=== PATIENT | male | born 1965 | race Caucasian/White ===

== ENCOUNTER → 2017-01-07 | Outpatient (CLI) | payer OTHER ==
[2017-01-07 11:41] LABS: MEAN CORPUSCULAR HEMOGLOBIN 29.8 pg (27.0-33.0); MEAN CORPUSCULAR HGB CONC 32.9 g/dl (32.0-36.5); MEAN CORPUSCULAR VOLUME 90.5 fl (80.0-96.0); RED CELL DISTRIBUTION WIDTH 12.8 % (11.5-14.5)
[2017-01-07 11:49] LABS: ALBUMIN/GLOBULIN RATIO 1.08 (1.00-1.93); ALKALINE PHOSPHATASE 96 U/L (45-117); ALT/SGPT 33 U/L (12-78); ANION GAP 9 MEQ/L (8-16); AST/SGOT 14 U/L (15-37); BILIRUBIN,DIRECT 0.1 MG/DL (0.0-0.2); BILIRUBIN,TOTAL 0.5 MG/DL (0.2-1.0); BLOOD UREA NITROGEN 14 MG/DL (7-18); CALCIUM LEVEL 9.2 MG/DL (8.5-10.1); CARBON DIOXIDE LEVEL 30 MEQ/L (21-32); CHLORIDE LEVEL 101 MEQ/L (98-107); CREATININE FOR GFR 1.16 MG/DL (0.70-1.30); GLOMERULAR FILTRATION RATE > 60.0 (>60); GLUCOSE, FASTING 148 MG/DL (70-105); PHOSPHORUS LEVEL 2.7 MG/DL (2.5-4.9); POTASSIUM SERUM 4.5 MEQ/L (3.5-5.1); SODIUM LEVEL 140 MEQ/L (136-145); TOTAL PROTEIN 7.7 GM/DL (6.4-8.2)
== END ==
LOC: M LRY 09:12
PROVIDERS: ATTEND Podiatrist Foot & Ankle Surgery
DX: B35.1 Tinea unguium (principal); Z79.899 Other long term (current) drug therapy

== ENCOUNTER → 2017-02-14 | Outpatient (REF) | payer OTHER ==
[2017-02-14 18:00] LABS: ALBUMIN 3.9 GM/DL (3.2-5.2); ALBUMIN/GLOBULIN RATIO 1.26 (1.00-1.93); ALKALINE PHOSPHATASE 85 U/L (45-117); ALT/SGPT 50 U/L (12-78); ANION GAP 8 MEQ/L (8-16); AST/SGOT 22 U/L (15-37); BILIRUBIN,TOTAL 0.4 MG/DL (0.2-1.0); BLOOD UREA NITROGEN 14 MG/DL (7-18); CALCIUM LEVEL 8.4 MG/DL (8.5-10.1); CARBON DIOXIDE LEVEL 29 MEQ/L (21-32); CHLORIDE LEVEL 101 MEQ/L (98-107); CHOLESTEROL LEVEL 159 MG/DL (<200); CREATININE FOR GFR 1.08 MG/DL (0.70-1.30); GLOMERULAR FILTRATION RATE > 60.0 (>60); GLUCOSE, FASTING 139 MG/DL (70-105); POTASSIUM SERUM 4.2 MEQ/L (3.5-5.1); SODIUM LEVEL 138 MEQ/L (136-145); T UPTAKE 32 % (33-40); THYROXINE (T4) 9.5 UG/DL (4.5-12.0); TRIGLYCERIDES LEVEL 209 MG/DL (<150)
== END ==
LOC: M SFHCLERA 09:49
PROVIDERS: ATTEND Family Medicine
DX: R25.2 Cramp and spasm (principal); E11.9 Type 2 diabetes mellitus without complications

== ENCOUNTER → 2017-05-07 | Outpatient (REF) | payer OTHER ==
[2017-05-07 12:06] LABS: ALBUMIN 3.7 GM/DL (3.2-5.2); ALBUMIN/GLOBULIN RATIO 1.16 (1.00-1.93); ALKALINE PHOSPHATASE 87 U/L (45-117); ALT/SGPT 44 U/L (12-78); ANION GAP 8 MEQ/L (8-16); AST/SGOT 18 U/L (15-37); BILIRUBIN,TOTAL 0.7 MG/DL (0.2-1.0); BLOOD UREA NITROGEN 13 MG/DL (7-18); CALCIUM LEVEL 9.3 MG/DL (8.5-10.1); CARBON DIOXIDE LEVEL 29 MEQ/L (21-32); CHLORIDE LEVEL 103 MEQ/L (98-107); CREATININE FOR GFR 0.94 MG/DL (0.70-1.30); GLOMERULAR FILTRATION RATE > 60.0 (>60); GLUCOSE, FASTING 97 MG/DL (70-105); POTASSIUM SERUM 4.1 MEQ/L (3.5-5.1); SODIUM LEVEL 140 MEQ/L (136-145); TOTAL PROTEIN 6.9 GM/DL (6.4-8.2)
== END ==
LOC: M SFHCLERA 09:07
PROVIDERS: ATTEND Physician Assistant
DX: E11.9 Type 2 diabetes mellitus without complications (principal)

== ENCOUNTER 2017-08-02 21:54 | Inpatient (IN) | payer OTHER ==
[~2017-08-02] VITALS: Ht 167.6 cm; Wt 84.0 kg
[2017-08-02] MEDS ORDERED: DULO1CAP3 PO (22:17)
[2017-08-02] MEDS ORDERED: PRAV20TA2 PO (22:17)
[2017-08-02] MEDS ORDERED: VICT18IN SC (22:17)
[2017-08-02] MEDS ORDERED: METF10004 PO (22:17)
[2017-08-02] MEDS ORDERED: CELE1CAP9 PO (22:17)
[2017-08-02] MEDS ORDERED: AZEL0.055 (22:17)
[2017-08-02] MEDS ORDERED: LOSA50TA20 (22:17)
[2017-08-02] MEDS ORDERED: VERA240C PO (22:17)
[2017-08-02] MEDS ORDERED: KETOROLAC 30 MG/ML VIAL (J1885) IV ONE (23:30)
[2017-08-02] MEDS ORDERED: NS 1,000 ML IV ONE (23:30)
[2017-08-02] MEDS ORDERED: ONDANSETRON 4MG/2ML VIAL (J2405) IV ONE (23:30)
[2017-08-03] LABS: BASO % 0.4 % (0.0-1.0); EOS # 0.1 K/mm3 (0.0-0.50); EOS % 1.1 % (0.0-3.0); LARGE UNSTAINED CELL # 0.1 K/mm3 (0.0-0.4); LARGE UNSTAINED CELL % 0.9 % (0.0-4.0); LYMPH # 1.9 K/mm3 (1.5-4.5); LYMPH % 14.5 % (24.0-44.0); MEAN CORPUSCULAR HEMOGLOBIN 29.4 pg (27.0-33.0); MEAN CORPUSCULAR HGB CONC 32.8 g/dl (32.0-36.5); MEAN CORPUSCULAR VOLUME 89.9 fl (80.0-96.0); MONO # 0.6 K/mm3 (0.0-0.8); MONO % 4.6 % (0.0-5.0); NEUTROPHILS # 9.5 K/mm3 (1.8-7.7); NEUTROPHILS % 78.6 % (36.0-66.0); PLATELET COUNT, AUTOMATED 206 k/mm3 (150-450); RED CELL DISTRIBUTION WIDTH 13.5 % (11.5-14.5)
[2017-08-03 00:19] LABS: ERYTHROCYTE SEDIMENTATION RATE 10 mm/hr (0-20)
[2017-08-03 00:21] LABS: ALBUMIN 4.1 GM/DL (3.2-5.2); ALBUMIN/GLOBULIN RATIO 1.08 (1.00-1.93); ALKALINE PHOSPHATASE 85 U/L (45-117); ALT/SGPT 30 U/L (12-78); ANION GAP 5 MEQ/L (8-16); AST/SGOT 11 U/L (15-37); BILIRUBIN,DIRECT 0.1 MG/DL (0.0-0.2); BILIRUBIN,TOTAL 0.6 MG/DL (0.2-1.0); BLOOD UREA NITROGEN 17 MG/DL (7-18); CALCIUM LEVEL 9.1 MG/DL (8.5-10.1); CARBON DIOXIDE LEVEL 32 MEQ/L (21-32); CHLORIDE LEVEL 103 MEQ/L (98-107); CREATININE FOR GFR 1.37 MG/DL (0.70-1.30); GLOMERULAR FILTRATION RATE 58.6 (>56); GLUCOSE, FASTING 135 MG/DL (70-105); POTASSIUM SERUM 3.7 MEQ/L (3.5-5.1); SODIUM LEVEL 140 MEQ/L (136-145); TOTAL PROTEIN 7.9 GM/DL (6.4-8.2)
[2017-08-03] MEDS ORDERED: NS 1,000 ML IV ONE (01:30)
--- NOTE | 2017-08-03 01:30 | REPUSA ---
CLINICAL HISTORY: Headaches. TECHNIQUE: Multiple axial brain CT scan sections were obtained from base to vertex without contrast a dministration. COMMENTS: 9.2x4.3 cm uncomplicated arachnoid cyst in the posterior fossa. The study shows normal configuration of sella turcica. There are no intra or extra-axial collections. There is no mass effect or midline shift. There is no evidence of hematoma formation. No hydrocephal us is present. No abnormal calcifications are noted. No significant abnormalities are seen either in the posterior fossa or supratentorial compartment. Changes from prior right mastoidectomy. Chronic mucosal inflammatory changes of the paranasal sinuses. Air-fluid levels in the frontal sinuses. IMPRESSION: No evidence of acute intracranial pathology. Acute frontal sinusitis. Chronic mucosal inflammatory disease in the remaining paranasal sinuses. Thank you for your kind referral of this patient.
[2017-08-03] MEDS ORDERED: MORPHINE 4 MG/ML 1ML SYRINGE IV ONE (01:45)
[2017-08-03 03:02] LABS: GLUCOSE CSF 74 MG/DL (40-75)
[2017-08-03 03:16] LABS: RBC CSF AUTO 27 /mm3 (0-0); WBC CSF AUTO 265 /mm3 (0-10)
[2017-08-03 03:21] LABS: APPEARANCE, CSF CLEAR (CLEAR); COLOR, CSF COLORLESS (COLORLESS); CSF DIFF IF INDICATED? YES (NO); CSF TUBE# CELL CNT TUBE 4
[2017-08-03 03:27] LABS: CSF DILUENT LOT # 6333
[2017-08-03] MEDS ORDERED: cefTRIAXone SOD 1 GM in D5W MINI-BAG PLUS 50 ML IV ONE (04:30)
[2017-08-03] MEDS ORDERED: FLON1SPR (04:49)
[2017-08-03] MEDS ORDERED: LOSA25TA8 PO (04:49)
[2017-08-03] MEDS ORDERED: GLUCOSE 4 GM CHEW TABLET PO PRN (05:45)
[2017-08-03] MEDS ORDERED: DEXTROSE 50% 50 ML SYRINGE IV PRN (05:45)
[2017-08-03] MEDS ORDERED: ONDANSETRON 4MG/2ML VIAL (J2405) IV PRN (05:45)
[2017-08-03] MEDS ORDERED: GLUCAGON FOR INJ 1 MG VIAL (J1610) SC PRN (05:45)
[2017-08-03] MEDS ORDERED: ACETAMINOPHEN TAB 650MG DOSE (2X325MG) PO PRN (05:45)
[2017-08-03 06:04] LABS: MAGNESIUM LEVEL 1.7 MG/DL (1.8-2.4)
[2017-08-03] MEDS: NS 1,000 ML IV SCH ×2 (06:10→15:07)
[2017-08-03] MEDS: NS IV SCH ×3 (06:10→21:26)
[2017-08-03] MEDS: ACYCLOVIR IV SCH ×3 (06:10→21:26)
--- NOTE | 2017-08-03 06:53 | HPEPDOC ---
General Date of Admission Aug 03, 2017 at 05:00 Primary Care Physician: PRASANNA HARDEN PA-C Attending Physician: KWASI MCCAULEY MD Chief Complaint The patient is a 52-year-old male admitted with a reason for visit of Meningitis. Source: Patient, Family, RN notes reviewed, Old records Exam Limitations: No limitations Timing/Duration: Week(s) Associated Symptoms: Fever, Headaches, Nausea, Dizziness History of Present Illness Mr. Rivas is a 52-year-old male who presents to [facility]'s emergency Department with neck, shoulder pain, and headache. He is accompanied by his . Past medical history significant for hypertension, diabetes mellitus type 2, obstructive sleep apnea without CPAP, depression, dyslipidemia, history of left tennis elbow, a history of serous otitis media, chronic sinusitis, history of cholesteatoma, history of viral meningitis in childhood. Patient reports that for the last few weeks he has had right shoulder and neck pain that he describes as achy at rest and sharp and stabbing with movement. Reports worsening of that pain with radiation along the back of his neck and into his head. The pain is so severe that he is unable to turn his head. He also reports feeling unsteady on his feet and feeling nauseous. Patient also reports non-rigorous chills and night sweats overnight for which he took a hot bath for 45 minutes, put on pajamas bottoms and got into bed thinking that that would help. He reports that he was unable to sleep. He initially thought that he had slept wrong and took aspirin and Excedrin without relief. He finally called his primary care provider on their after hours number, but no one returned his call. He reports that this has never happened before, however he does report viral meningitis when he was 12 years old and states that the symptoms were similar to the symptoms he is having now. He denies any autoimmune disorders, infectious disorders, or other immunocompromised disease states. Denies organ transplantation or blood transfusions. 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 Reports diarrhea without noticeable blood, dependent edema, bilateral cough pain , bilateral wrist pain, and intentional weight loss. Patient reports that he has been increasing his water intake. Besides his review of systems listed above all other review systems are negative. Emergency department evaluation included vital signs which showed tachycardia. CBC was within optimal range with a mild leukocytosis. BMP reveals acute kidney injury and hyperglycemia. Patient had a lactic acidosis of 2.6. Head CT showed acute frontal sinusitis. The Gram stain and blood culture were obtained. Lumbar puncture was performed which was consistent with a viral meningitis. Hospitalist service was consulted and patient was admitted for further medical management. Home Medications Scheduled (Celecoxib) 200 Mg Cap, 200 MG PO BID, (Reported) (Azelastine HCl) 0.15 % Spr, 2 SPRAYS NA DAILY, (Reported) (Flonase Allergy Relief) 50 Mcg/Act Spr, 2 SPRAYS NA QPM, (Reported) Cefdinir (Cefdinir) 300 Mg Cap, 300 MG PO BID Duloxetine Hcl (Duloxetine HCl) 60 Mg Cap, 60 MG PO DAILY, (Reported) Liraglutide (Victoza) 18 Mg/3 Ml Inj, 0.6 UNITS SC QPM, (Reported) Losartan Potassium (Losartan Potassium) 25 Mg Tab, 25 MG PO DAILY, (Reported) Metformin Hydrochloride (Metformin HCl) 1,000 Mg Tab, 1,000 MG PO BID, (Reported ) Pravastatin Sodium (Pravastatin Sodium) 20 Mg Tab, 20 MG PO QHS, (Reported) Valacyclovir HCl (Valacyclovir HCl) 500 Mg Tab, 1,000 MG PO BID Verapamil HCl (Verapamil HCl ER) 240 Mg Cap, 240 MG PO BID, (Reported) Allergies Coded Allergies: No Known Allergies (Verified , 06/17/12) Past Medical History Medical History 1. Hypertension 2. Diabetes mellitus type 2 3. Chronic sinusitis 4. Depression 5. Dyslipidemia 6. Obstructive sleep apnea without CPAP 7. History of left tennis elbow line 8. History of serous otitis media 9. History of cholesteatoma 10. History of viral meningitis in childhood Surgical History 1. Nasal surgeries 2. 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 [employer] 1 adult son, 26 No grandchildren Denies tobacco use Rarely consumes alcohol Denies illicit drug use Admits to travel Denies environmental exposures Review of Symptoms Constitutional: Reports: Chills, Fever, Night Sweats, Weight Loss (intentional) , Denies: Weakness Eyes: Reports: Vision change (blurry vision), Denies: Pain, Conjunctivae inflammation, Eyelid inflammation, Redness ENT: Reports: Head Aches (achy at rest, sharp and stabbing with movement), Sinus Congestion, Denies: Ear Pain, Dysphagia, Post Nasal Drip, Sore Throat, Epistaxis Skin: Denies: Rash, Lesions Pulmonary: Denies: Dyspnea, Cough, Pleuritic Chest Pain Cardiovascular: Reports: Edema (bilateral dependent edema), Denies: Chest Pain, Palpitations, Orthopnea, Paroxysmal Noc. Dyspnea, Lt Headedness Gastrointestinal: Reports: Nausea, Diarrhea, Denies: Vomiting, Abdominal Pain, Constipation, Melena, Hematochezia Genitourinary: Denies: Dysuria, Frequency, Incontinence, Hematuria, Retention Hematologic: Denies: Bruising, Bleeding Excessively Endocrine: Denies: Polydipsia, Polyphagia, Polyuria Musculoskeletal: Reports: Neck Pain, Shoulder Pain (right), Hand Pain ( bilateral wrist), Muscle Pain Neurological: Denies: Weakness, Numbness Physical Examination General Exam: Positive: Alert, Cooperative, No Acute Distress Eye Exam: Positive: PERRLA, Conjunctiva & lids normal, EOMI, Negative: Sclera icteric, Ptosis ENT Exam: Positive: Atraumatic, Mucous membr. moist/pink, Pharynx Normal, Tongue Midline, Nares Patent, Negative: Pharyngeal Edema Neck Exam: Positive: Supple, +2 carotid pulse wo bruit, Other (pain with passive flexion and knee and hip flexion), Negative: JVD, thyromegaly, Lymphadenopathy Chest Exam: Positive: Clear to auscultation, Normal air movement, Negative: Rales, Rhonchi, Wheezing, Diminished Heart Exam: Positive: Rate Normal, Tachycardic, Regular Rhythm, Normal S1, Normal S2, Negative: Gallops, Murmurs, Rubs Telemetry: Positive: Tachycardia Abdomen Exam: Positive: Normal bowel sounds, Soft, Negative: Tenderness, Hepatospenomegaly, Mass, Hernia Extremity Exam: Positive: Normal pulses (tachycardic), Negative: Clubbing, Cyanosis, Edema, Tenderness Skin Exam: Negative: Rash, Breakdown Neuro Exam: Positive: Normal Speech, Strength at 5/5 X4 ext, Cranial Nerves 3- 12 NL Other physical findings Head CT IMPRESSION: No evidence of acute intracranial pathology. Acute frontal sinusitis. Chronic mucosal inflammatory disease in the remaining paranasal sinuses. Vital Signs Vital Signs Date Time Temp Pulse Resp B/P (MAP) Pulse Ox O2 Delivery O2 Flow Rate FiO2 08/03/17 05:32 99.7 106 16 92 Room Air 130/82 (98) Height (in): 66 Weight (kg): 84.09 BMI (kg): 29.9 Laboratory Data Labs 24H Laboratory Tests 2 08/02/17 23:38: White Blood Count 12.0H, Red Blood Count 4.86, Hemoglobin 14.3, Hematocrit 43.7 , Mean Corpuscular Volume 89.9, Mean Corpuscular Hemoglobin 29.4, Mean Corpuscular Hemoglobin Concent 32.8, Red Cell Distribution Width 13.5, Platelet Count 206, Neutrophils (%) (Auto) 78.6H, Lymphocytes (%) (Auto) 14.5L, Monocytes (%) (Auto) 4.6, Eosinophils (%) (Auto) 1.1, Basophils (%) (Auto) 0.4, Neutrophils # (Auto) 9.5H, Lymphocytes # (Auto) 1.9, Monocytes # (Auto) 0.6, Eosinophils # (Auto) 0.1, Basophils # (Auto) 0.0, Large Unclassified Cells % 0.9 , Large Unclassified Cells # 0.1, Erythrocyte Sedimentation Rate 10, Anion Gap 5L, Glomerular Filtration Rate 58.6, Calcium Level 9.1, Magnesium Level 1.7L, Aspartate Amino Transf (AST/SGOT) 11L, Alanine Aminotransferase (ALT/SGPT) 30, Alkaline Phosphatase 85, Total Bilirubin 0.6, Direct Bilirubin 0.1, C-Reactive Protein, Quantitative < 0.30, Total Protein 7.9, Albumin 4.1, Albumin/Globulin Ratio 1.08 08/02/17 23:39: Lactic Acid Level 2.6*H 08/03/17 02:23: 08/03/17 02:27: CSF Appearance CLEAR, CSF Color COLORLESS, CSF WBC (Auto) 265H, CSF RBC (Auto) 27H, CSF Glucose (Tube 1) TUBE 1, CSF Total Protein (Tube 1) TUBE 2, CSF Cell Count Tube # TUBE 4, CSF Neutrophils % 10.0H, CSF Lymphocytes % 60.0H, CSF Monocytes % 29.0H, CSF Eosinophils % 0.0, CSF Glucose 74, CSF Total Protein 144.4H CBC/BMP Laboratory Tests 08/02/17 23:38 Red Blood Count 4.86, Mean Corpuscular Volume 89.9, Mean Corpuscular Hemoglobin 29.4, Mean Corpuscular Hemoglobin Concent 32.8, Red Cell Distribution Width 13.5 , Neutrophils (%) (Auto) 78.6 H, Lymphocytes (%) (Auto) 14.5 L, Monocytes (%) ( Auto) 4.6, Eosinophils (%) (Auto) 1.1, Basophils (%) (Auto) 0.4, Neutrophils # ( Auto) 9.5 H, Lymphocytes # (Auto) 1.9, Monocytes # (Auto) 0.6, Eosinophils # ( Auto) 0.1, Basophils # (Auto) 0.0 Microbiology Microbiology 08/03/17 Blood Culture, Received Pending 08/02/17 Blood Culture, Received Pending 08/03/17 Gram Stain - Preliminary, Resulted 08/03/17 CSF Culture, Resulted Pending 08/03/17 Viral Culture, Received Pending Assessment/Plan This is a 52-year-old male with a past medical history significant for hypertension, diabetes mellitus type 2, obstructive sleep apnea without CPAP , depression, dyslipidemia, history of left tennis elbow, a history of serous otitis media, chronic sinusitis, history of cholesteatoma who presents with viral meningitis. Plan / VTE VTE Prophylaxis Ordered?: Yes (TEDs, sequential, knee-high compression, heparin 5000 units subcutaneous every 8 hours) Plan Plan Viral meningitis Lumbar puncture CSF fluid results indicates more of a viral picture. Mild leukocytosis. Patient did receive a dose of Rocephin in the emergency department. Started patient on acyclovir. Obtaining viral culture. Initial Gram stain did not reveal anything significant. Intravenous fluid resuscitation with normal saline at 100 mLs per hour. Tylenol as needed for pain. Zofran for nausea. Lactic acidosis Likely secondary to medical picture. Four hour reflexive lactic acid pending. Acute kidney injury Likely secondary to underlying clinical picture. Intravenous fluid resuscitation with normal saline at 100 mLs per hour. Hypertension Continue patient on current home medication regimen of losartan and verapamil with hold parameters of systolic blood pressure < 110 and/or heart rate < 60. Dyslipidemia Continue patient on home medication pravastatin. Depression Continue patient home medication of Cymbalta. Diabetes mellitus, type II Hold patient's metformin. Continue patient on sliding scale insulin, fingersticks before meals and at bedtime, and hypoglycemic protocol. Chronic sinusitis Continue patient on current home medication of fluticasone. Disposition Admit: Medical surgical unit Anticipated hospitalization: 2 nights Attending: Dr. Moreno IVF: Initiate Diet: Continue Current Activity: Encourage Ambulation Medications: Change to IV Diagnostics: Check Labs, Repeat Labs in AM, Obtain Cultures Anticipated Discharge: Home GME ATTESTATION GME ATTESTATION My preceptor for this patient encounter was physically present in the building during the encounter and was fully available. As needed, all aspects of the patient interview, examination, medical decision making process, and medical care plan development were reviewed and approved by the preceptor. Preceptor is aware and concurs with the plan as stated in the body of this note and will attest to such by his/her cosignature. ATTENDING NOTE I, Kwasi Mccauley, have both independently examined this patient as well as reviewed the documentation. I have discussed in detail with the resident the findings and plan of treatment as documented in the residents documentation. I will continue to follow the patient and offer further guidance to the patients care as necessary during this hospital stay. MEL KEARNS Aug 03, 2017 06:53 KWASI MCCAULEY MD Aug 19, 2017 15:51
[2017-08-03 08:35] VITALS: BP 176/97
[2017-08-03] MEDS ORDERED: LOSARTAN 25 MG TAB PO SCH (09:00)
[2017-08-03] MEDS: HumaLOG INSULIN (NovoLOG) PER UNIT SC SCH ×4 (10:11→21:00)
[2017-08-03] MEDS: DULoxetine 30 MG CAP (CYMBALTA) PO SCH (10:11)
[2017-08-03] MEDS: VERAPAMIL 120 MG SR TAB PO SCH ×2 (10:12→21:26)
[2017-08-03] MEDS: HEPARIN SOD (PORCINE) 5000 UNITS/ML VIAL SC SCH ×3 (10:13→21:27)
[2017-08-03] MEDS: oxyCODONE 5MG TAB PO PRN ×2 (11:48→21:26)
[2017-08-03] MEDS: ACETAMINOPHEN 500 MG TAB PO PRN ×2 (15:05→23:09)
[2017-08-03 16:00] VITALS: BP 117/59
[2017-08-03] MEDS ORDERED: ALBUTEROL SULFATE 2.5 MG/0.5 ML INH NEB SOLN NEB PRN (17:30)
[2017-08-03] MEDS ORDERED: FUROSEMIDE 20 MG/2 ML VIAL (J1940) IV ONE (18:00)
[2017-08-03] MEDS ORDERED: ALBUTEROL SULFATE 2.5 MG/0.5 ML INH NEB SOLN NEB ONE (18:00)
[2017-08-03] MEDS: PRAVASTATIN 20 MG TAB PO SCH (21:25)
[2017-08-03] MEDS: FLUTICASONE PROP 0.05% NASAL SPRAY 16 GM (FLONASE) SCH (21:27)
[2017-08-03 23:00] VITALS: BP 149/68
--- NOTE | 2017-08-03 23:44 | PHACANCOPD ---
PHARMACY VANCOMYCIN DOSING Pt Demographics Demographics Patient Age:52 , Weight:90.100 , Gender: male Adjusted Body Weight Date: 08/03/17, Adjusted Body Weight: [74] Kg Events Past 24 Hours Events Past 24 Hours: NO: Dialysis, Diuretic Therapy, Change in CrCl, Fever, Elevation in WBC, Pending Diagnostics, Pending Procedures, Other Vancomycin Vancomycin Target Ranges: 15-20 mcg/ml Vancomycin Load Y/N: Yes Load Dose Date Time Vancomycin Load Dose: 2000MG Date: 08-04 Time: 0200 Vancomycin Dose Date: 08/03/17. Current Vancomycin Dose: [1G Q8H] Intermittent Dosing?: No Labs Labs Item Value Date Time White Blood Count 12.0 K/mm3 H 08/02/17 2338 Creatinine 1.37 MG/DL H 08/02/178 Blood Urea Nitrogen 17 MG/DL 08/02/17 2338 Vital Signs Label Value Date Time Patient Temperature 99.4 degrees F 08/03/17 1600 Temperature Source Temporal 08/03/17 1600 Micro Microbiology 08/03/17 Blood Culture, Received Pending 08/02/17 Blood Culture, Received Pending 08/03/17 Gram Stain - Final, Resulted 08/03/17 CSF Culture, Resulted Pending 08/03/17 Viral Culture, Received Pending Creatinine Clearance Date:08/03/17. Creatinine Clearance: [58]. Pending Labs Trough 09-03 @1700 Assessment and Plan Maintaining Current Dose?: Yes Reason for dose change: No Dose Change Pharmacist Note Pharmacist Note Date: 08/03/17. Pharmacist note:doses at 1000mg q8h with a trough ordered for 09- 03 @1700. Will continue to monitor and make adjustments as needed. LEVI CORTEZ PHARMACY Aug 03, 2017 23:44
[2017-08-03] MEDS: cefTRIAXone SOD 2 GM in D5W MINI-BAG PLUS 50 ML IV SCH (23:49)
[2017-08-04] MEDS ORDERED: SODIUM CHLORIDE 0.9% 1000 ML IV ONE
[2017-08-04] MEDS ORDERED: VANCOMYCIN HCL 1,000 MG, VIAL MATE ADAPTER 1 EACH in D5W 250 ML IV ONE (01:00)
[2017-08-04] MEDS: VANCOMYCIN HCL 1,000 MG, VIAL MATE ADAPTER 1 EACH in D5W 250 ML IV SCH ×3 (02:27→18:05)
[2017-08-04] MEDS: AMPICILLIN SOD 2 GM in D5W MINI-BAG PLUS 100 ML IV SCH ×5 (05:35→21:07)
[2017-08-04] MEDS: NS IV SCH ×3 (06:17→22:04)
[2017-08-04] MEDS: HEPARIN SOD (PORCINE) 5000 UNITS/ML VIAL SC SCH ×3 (06:17→22:04)
[2017-08-04] MEDS: ACYCLOVIR IV SCH ×3 (06:17→22:04)
[2017-08-04] MEDS: oxyCODONE 5MG TAB PO PRN (06:18)
[2017-08-04 07:18] LABS: BASO % 0.2 % (0.0-1.0); EOS # 0.1 K/mm3 (0.0-0.50); EOS % 0.5 % (0.0-3.0); LARGE UNSTAINED CELL # 0.1 K/mm3 (0.0-0.4); LARGE UNSTAINED CELL % 0.8 % (0.0-4.0); LYMPH # 1.4 K/mm3 (1.5-4.5); LYMPH % 10.9 % (24.0-44.0); MEAN CORPUSCULAR HGB CONC 33.1 g/dl (32.0-36.5); MEAN CORPUSCULAR VOLUME 90.8 fl (80.0-96.0); MONO # 0.7 K/mm3 (0.0-0.8); MONO % 5.9 % (0.0-5.0); NEUTROPHILS # 9.4 K/mm3 (1.8-7.7); NEUTROPHILS % 81.7 % (36.0-66.0); PLATELET COUNT, AUTOMATED 171 k/mm3 (150-450); RED CELL DISTRIBUTION WIDTH 13.5 % (11.5-14.5); WHITE BLOOD COUNT 11.5 K/mm3 (4.0-10.0)
[2017-08-04 07:35] LABS: ANION GAP 10 MEQ/L (8-16); BLOOD UREA NITROGEN 10 MG/DL (7-18); CALCIUM LEVEL 7.7 MG/DL (8.5-10.1); CARBON DIOXIDE LEVEL 28 MEQ/L (21-32); CHLORIDE LEVEL 101 MEQ/L (98-107); CREATININE FOR GFR 1.05 MG/DL (0.70-1.30); GLOMERULAR FILTRATION RATE > 60.0 (>56); GLUCOSE, FASTING 167 MG/DL (70-105); POTASSIUM SERUM 3.7 MEQ/L (3.5-5.1); SODIUM LEVEL 139 MEQ/L (136-145)
[2017-08-04 07:43] LABS: MAGNESIUM LEVEL 1.5 MG/DL (1.8-2.4)
--- NOTE | 2017-08-04 08:26 | REP ---
Clinical: Hypoxia. Comparison: 06/10/2012. Findings: Evaluation is limited by portable technique, underpenetration, and poor inspiratory effort - all of which accentuate the pulmonary vasculature and interstitium. Mild interstitial edema cannot be excluded along with trace right basilar atelectasis. The cardiac silhouette is within normal limits. No pneumothorax. Skeletal structures are intact. Impression: Limited portable chest x-ray. Cannot exclude interstitial edema or trace right basilar atelectasis. Signed by Korey Shay MD 08/04/2017 08:18 A
[2017-08-04] MEDS: HumaLOG INSULIN (NovoLOG) PER UNIT SC SCH ×4 (08:31→21:00)
[2017-08-04] MEDS: VERAPAMIL 120 MG SR TAB PO SCH ×2 (08:33→21:07)
[2017-08-04] MEDS: DULoxetine 30 MG CAP (CYMBALTA) PO SCH (08:34)
[2017-08-04] MEDS: ACETAMINOPHEN 500 MG TAB PO PRN ×2 (08:34→18:54)
[2017-08-04 09:11] LABS: ABG BASE EXCESS 1.9 (-2.0-2.0); ABG HCO3 26.6 MEQ/L (22.0-26.0); ABG PARTIAL PRESSURE CO2 42.1 mmHg (35.0-45.0); ABG PARTIAL PRESSURE O2 82.4 mmHg (75.0-100.0); ABG STANDARD HCO3 26.1 MEQ/L (22.0-26.0); ABG TOTAL CO2 27.9 MEQ/L (22.0-29.0); ABG pH (ARTERIAL) 7.419 UNITS (7.350-7.450)
[2017-08-04] MEDS: MAG SULF 1GM/100ML (MAG RUN) 1 GM in APPROPRIATE DILUENT 1 EA IV SCH ×2 (09:38→10:39)
--- NOTE | 2017-08-04 10:01 | IPNPDOC ---
Subjective Date Seen The patient was seen on 08/04/17. Subjective Chief Complaint/HPI The patient is a 52-year-old male admitted with a reason for visit of Meningitis. Events since last encounter Last night pateint was feeling very sick , headache , body soreness, was hypoxic to 84% in room air since the afternoon was started on nasal canula oxygen lso had some crackles in the base so was given lasix with good diuresis this did not help with the hypoxia. hea was not complaining of any sob and was nt tachypnic was was overall felt sicker at night so was started on vanco and ampicillin for broader coverage for bacterial meningitis. also his lactate was elevated overnight so was given 1 l fluid . this improved the lactate. this morning was feeling a little better. However later in the morning nurse paged me as he was falling asleep when he was talking to him and also with 4 liter oxygen his spo2 was only 84%. He was nt complaining of any sob , did not have any tachypnea. Had good bilateral airentry. CXR did not show acute acute changes, blood gas did not show any co2 retention. He was put on ventimask with improvement of oxygenation. Patient did received an oxycodone in the am . It looks like patient has sleep disorder and sleep apnea which worsened with oxycodone. Pateint did later tell me that he had a sleep study before and was advised CPAP however did not want it. Objective Physical Examination General Exam: Positive: Alert, Cooperative, No Acute Distress Eye Exam: Positive: PERRLA, Conjunctiva & lids normal, EOMI, Negative: Sclera icteric, Ptosis ENT Exam: Positive: Atraumatic, Mucous membr. moist/pink, Pharynx Normal, Tongue Midline, Nares Patent, Negative: Pharyngeal Edema Neck Exam: Positive: Supple, +2 carotid pulse wo bruit, Other (pain with passive flexion and knee and hip flexion), Negative: JVD, thyromegaly, Lymphadenopathy Chest Exam: Positive: Clear to auscultation, Normal air movement, Negative: Rales, Rhonchi, Wheezing, Diminished Heart Exam: Positive: Rate Normal, Tachycardic, Regular Rhythm, Normal S1, Normal S2, Negative: Gallops, Murmurs, Rubs Telemetry: Positive: Tachycardia Abdomen Exam: Positive: Normal bowel sounds, Soft, Negative: Tenderness, Hepatospenomegaly, Mass, Hernia Extremity Exam: Positive: Normal pulses (tachycardic), Negative: Clubbing, Cyanosis, Edema, Tenderness Skin Exam: Negative: Rash, Breakdown Neuro Exam: Positive: Normal Speech, Strength at 5/5 X4 ext, Cranial Nerves 3- 12 NL Assessment /Plan Problems (1) Hypoxia Status: Acute Problem Text: mostly when patient falling asleep. due to SAV worsened with oxycodone will dc oxycodone put the patient on oxygen by mask to maintain sats of 90% (2) Meningitis Status: Acute Problem Text: looks viral or early bacterial or aseptic. lymphocytic will continue with acyclovir and ceftriaxone , vanco and ampicillin after csf culture will deescalate antibiotics. (3) KARLEE (acute kidney injury) Status: Resolved (4) Diabetes Status: Chronic (5) Hypertension Status: Chronic (6) Hyperlipidemia Status: Chronic (7) SAV (obstructive sleep apnea) Status: Chronic Problem Text: needs oxygen. (8) Anxiety and depression Status: Chronic (9) Chronic back pain Status: Chronic (10) History of kidney stones Status: Chronic (11) Acute sinusitis Status: Acute Problem Text: on multiple antibiotics. Plan/VTE VTE Prophylaxis Ordered?: Yes (TEDs, sequential, knee-high compression, heparin 5000 units subcutaneous every 8 hours) Plan IVF: Initiate Diet: Continue Current Activity: Encourage Ambulation Medications: Change to IV Diagnostics: Check Labs, Repeat Labs in AM, Obtain Cultures Anticipated Discharge: Home VS, I&O, 24H, [facility] Vital Signs/I&O Vital Signs Date Time Temp Pulse Resp B/P (MAP) Pulse Ox O2 Delivery O2 Flow Rate FiO2 08/04/17 08:50 92 Venturi Mask 08/04/17 08:45 100.9 77 20 4.0 08/04/17 08:33 115/63 I&O- Last 24 Hours up to 6 AM 08/04/17 06:00 Intake Total 2236.8 ml Output Total 2900 ml Balance -663.2 ml Laboratory Data 24H LABS Laboratory Tests 2 08/03/17 22:15: Lactic Acid Followup at 4 Hours 4.2*H 08/04/17 02:15: Lactic Acid Level 2.0 08/04/17 06:51: White Blood Count 11.5H, Red Blood Count 4.41, Hemoglobin 13.2L, Hematocrit 40.0L, Mean Corpuscular Volume 90.8, Mean Corpuscular Hemoglobin 30.0, Mean Corpuscular Hemoglobin Concent 33.1, Red Cell Distribution Width 13.5, Platelet Count 171, Neutrophils (%) (Auto) 81.7H, Lymphocytes (%) (Auto) 10.9L, Monocytes (%) (Auto) 5.9H, Eosinophils (%) (Auto) 0.5, Basophils (%) (Auto) 0.2 , Neutrophils # (Auto) 9.4H, Lymphocytes # (Auto) 1.4L, Monocytes # (Auto) 0.7, Eosinophils # (Auto) 0.1, Basophils # (Auto) 0.0, Large Unclassified Cells % 0.8 , Large Unclassified Cells # 0.1, Anion Gap 10, Glomerular Filtration Rate > 60.0, Blood Urea Nitrogen 10, Creatinine 1.05, Sodium Level 139, Potassium Level 3.7, Chloride Level 101, Carbon Dioxide Level 28, Calcium Level 7.7#L, Magnesium Level 1.5L 08/04/17 09:00: Blood Gas Bicarbonate Standard 26.1H, Arterial Blood pH 7.419, Arterial Blood Partial Pressure CO2 42.1, Arterial Blood Partial Pressure O2 82.4, Arterial Blood Total CO2 27.9, Arterial Blood HCO3 26.6H, Arterial Blood Base Excess 1.9 , Arterial Blood Oxygen Saturation 96.4 CBC/BMP Laboratory Tests 08/04/17 06:51 Red Blood Count 4.41, Mean Corpuscular Volume 90.8, Mean Corpuscular Hemoglobin 30.0, Mean Corpuscular Hemoglobin Concent 33.1, Red Cell Distribution Width 13.5 , Neutrophils (%) (Auto) 81.7 H, Lymphocytes (%) (Auto) 10.9 L, Monocytes (%) ( Auto) 5.9 H, Eosinophils (%) (Auto) 0.5, Basophils (%) (Auto) 0.2, Neutrophils # (Auto) 9.4 H, Lymphocytes # (Auto) 1.4 L, Monocytes # (Auto) 0.7, Eosinophils # (Auto) 0.1, Basophils # (Auto) 0.0, Calcium Level 7.7 #L Microbiology Microbiology 08/03/17 Blood Culture - Preliminary, Resulted No growth after 24 hours . All specim... 08/02/17 Blood Culture - Preliminary, Resulted No growth after 24 hours . All specim... 08/03/17 Gram Stain - Final, Resulted 08/03/17 CSF Culture, Resulted Pending 08/03/17 Viral Culture, Received Pending LANIE BEACH MD Aug 04, 2017 10:01
[2017-08-04] MEDS: cefTRIAXone SOD 2 GM in D5W MINI-BAG PLUS 50 ML IV SCH (12:43)
[2017-08-04 16:00] VITALS: BP 130/70
[2017-08-04 20:00] VITALS: BP 159/84
[2017-08-04 21:00] VITALS: BP 143/84
[2017-08-04] MEDS: PRAVASTATIN 20 MG TAB PO SCH (21:06)
[2017-08-04] MEDS: FLUTICASONE PROP 0.05% NASAL SPRAY 16 GM (FLONASE) SCH (21:08)
[2017-08-05] VITALS: BP 136/75
[2017-08-05] MEDS: cefTRIAXone SOD 2 GM in D5W MINI-BAG PLUS 50 ML IV SCH (00:02)
[2017-08-05] MEDS: KETOROLAC 30 MG/ML VIAL (J1885) IV PRN ×3 (00:02→15:24)
[2017-08-05] MEDS: AMPICILLIN SOD 2 GM in D5W MINI-BAG PLUS 100 ML IV SCH ×3 (01:12→08:46)
[2017-08-05] MEDS: VANCOMYCIN HCL 1,000 MG, VIAL MATE ADAPTER 1 EACH in D5W 250 ML IV SCH ×2 (02:06→09:33)
[2017-08-05 04:45] VITALS: BP 122/63
[2017-08-05] MEDS: HEPARIN SOD (PORCINE) 5000 UNITS/ML VIAL SC SCH ×3 (06:07→20:29)
[2017-08-05] MEDS: NS IV SCH ×3 (06:08→20:29)
[2017-08-05] MEDS: ACYCLOVIR IV SCH ×3 (06:08→20:29)
[2017-08-05 07:26] LABS: BASO % 0.2 % (0.0-1.0); EOS # 0.1 K/mm3 (0.0-0.50); EOS % 1.2 % (0.0-3.0); LARGE UNSTAINED CELL # 0.1 K/mm3 (0.0-0.4); LARGE UNSTAINED CELL % 1.1 % (0.0-4.0); LYMPH # 1.4 K/mm3 (1.5-4.5); LYMPH % 10.3 % (24.0-44.0); MEAN CORPUSCULAR HGB CONC 33.9 g/dl (32.0-36.5); MEAN CORPUSCULAR VOLUME 88.3 fl (80.0-96.0); MONO # 0.7 K/mm3 (0.0-0.8); MONO % 5.6 % (0.0-5.0); NEUTROPHILS # 9.6 K/mm3 (1.8-7.7); NEUTROPHILS % 81.6 % (36.0-66.0); PLATELET COUNT, AUTOMATED 158 k/mm3 (150-450); RED CELL DISTRIBUTION WIDTH 13.5 % (11.5-14.5); WHITE BLOOD COUNT 11.8 K/mm3 (4.0-10.0)
[2017-08-05] MEDS: HumaLOG INSULIN (NovoLOG) PER UNIT SC SCH ×4 (07:30→20:36)
[2017-08-05 07:39] LABS: ANION GAP 6 MEQ/L (8-16); BLOOD UREA NITROGEN 9 MG/DL (7-18); CALCIUM LEVEL 7.8 MG/DL (8.5-10.1); CARBON DIOXIDE LEVEL 32 MEQ/L (21-32); CHLORIDE LEVEL 99 MEQ/L (98-107); CREATININE FOR GFR 0.84 MG/DL (0.70-1.30); GLOMERULAR FILTRATION RATE > 60.0 (>56); GLUCOSE, FASTING 159 MG/DL (70-105); POTASSIUM SERUM 3.4 MEQ/L (3.5-5.1); SODIUM LEVEL 137 MEQ/L (136-145)
[2017-08-05 08:00] VITALS: BP 130/71
[2017-08-05] MEDS ORDERED: POTASSIUM CHLORIDE 10 MEQ SR TABLET PO ONE (08:00)
[2017-08-05 08:07] LABS: FERRITIN 98 NG/ML (26-388); PERCENT SATURATION 6.3 % (19.7-50.0); TOTAL IRON BINDING CAPACITY 350 UG/DL (250-450)
[2017-08-05 08:10] LABS: RETIC HEMOGLOBIN CONTENT CHr 31.7 PG (24-36); RETICULOCYTE ABSOLUTE ADVIA212 62 x10(9)/L (17-77)
--- NOTE | 2017-08-05 08:17 | IPNPDOC ---
Date Seen The patient was seen on 08/05/17. Progress Note SUBJECTIVE: Patient is a 52-year-old male with suspected meningitis. Patient reports that he is having some increased work of breathing. Has SAV, but states he will not wear his CPAP. We have him on 50% venturi-mask with oxygen saturations at bedside at 89%. Patient's left arm is erythematous and warm from IV infiltration. Recommended that patient elevate arm and place a warm compress over the area. Patient reports that he "feels better", but complains of a frontal headache and myalgias. Reports that neck pain has subsided. Currently evaluating other causes for suspected meningitis, such as fungal etiology. OBJECTIVE PHYSICAL EXAMINATION: VITAL SIGNS: Please see below. GENERAL: Pleasant male, sitting up in bed, venturi-mask in place, alert and conversant HEENT: Atraumatic, normocephalic, PERRL, EOMI, oral mucosa appears somewhat dry , nares are patent, nasal septum is midline CARDIOVASCULAR: Regular rate and rhythm, normal S1 and S2, no murmur, rub, click RESPIRATORY: Crackles appreciated in the right middle and lower lobes; clear to auscultation on the left ABDOMINAL: Soft, non-tender, non-distended, bowel sounds appreciated EXTREMITIES: Left forearm erythematous and warm, peripheral pulses appreciated, equal, symmetrical, +2/4 NEUROLOGICAL: CN II-XII grossly intact PSYCHOLOGICAL: Alert and conversant LABORATORY DATA: Please see below. MICROBIOLOGY: Please see below DVT prophylaxis ordered?: Heparin 5,000 units SC every 8 hours ASSESSMENT AND PLAN: This is a 52-year-old male with suspected meningitis. PROBLEMS: 1. Meningitis: Continue with ampicillin, ceftriaxone, acyclovir, and vancomycin. Investigating other etiologies, such as fungal by obtaining fungal smear. Obtaining viral PCR on CSF. Mild leukocytosis remains. Tylenol for pain. Zofran for nausea. 2. Myalgias: Initiate NSAIDs. Discontinued narcotic as patient desaturated. History of SAV. 3. Hypoxia: Patient oxygen saturation desaturated to 89% bedside. Continue venturi-mask at 50% FiO2. Patient states he will not wear CPAP. Encouraged IS. Albuterol nebulizer as needed. 4. Anemia: Likely dilutional. Obtaining iron studies, reticulocyte count, and peripheral smear. 5. Abnormal electrolytes: Replenishing calcium and potassium. 6. Hypertension: Continue patient on current home medication regimen of losartan and verapamil with hold parameters of systolic blood pressure < 110 and /or heart rate < 60. 7. Dyslipidemia: Continue patient on home medication pravastatin. 8. Depression: Continue patient home medication of Cymbalta. 9. Diabetes mellitus, type II: Hold patient's metformin. Continue patient on sliding scale insulin, fingersticks before meals and at bedtime, and hypoglycemic protocol. 10. Acute sinusitis: Continue patient on current home medication of fluticasone. Patient on multiple antibiotics. 11. Headache: Continue patient on Tylenol and NSAIDs. DISPOSITION: Remains admitted for the time-being. Continue antibiotics. Investigate other etiologies for suspected meningitis. VS, I&O, 24H, Fishbone Vital Signs/I&O Vital Signs Date Time Temp Pulse Resp B/P (MAP) Pulse Ox O2 Delivery O2 Flow Rate FiO2 08/05/17 04:45 97.8 74 18 122/63 (82) 94 Venturi Mask 50 08/04/17 16:00 4.0 I&O- Last 24 Hours up to 6 AM 08/05/17 05:59 Intake Total 2850 ml Output Total 2330 ml Balance 520 ml Laboratory Data 24H LABS Laboratory Tests 2 08/04/17 09:00: Blood Gas Bicarbonate Standard 26.1H, Arterial Blood pH 7.419, Arterial Blood Partial Pressure CO2 42.1, Arterial Blood Partial Pressure O2 82.4, Arterial Blood Total CO2 27.9, Arterial Blood HCO3 26.6H, Arterial Blood Base Excess 1.9 , Arterial Blood Oxygen Saturation 96.4 08/04/17 16:56: Vancomycin Level Trough 9.1L 08/05/17 07:07: White Blood Count 11.8H, Red Blood Count 3.98L, Hemoglobin 11.9L, Hematocrit 35.1L, Mean Corpuscular Volume 88.3, Mean Corpuscular Hemoglobin 30.0, Mean Corpuscular Hemoglobin Concent 33.9, Red Cell Distribution Width 13.5, Platelet Count 158, Neutrophils (%) (Auto) 81.6H, Lymphocytes (%) (Auto) 10.3L, Monocytes (%) (Auto) 5.6H, Eosinophils (%) (Auto) 1.2, Basophils (%) (Auto) 0.2 , Neutrophils # (Auto) 9.6H, Lymphocytes # (Auto) 1.4L, Monocytes # (Auto) 0.7, Eosinophils # (Auto) 0.1, Basophils # (Auto) 0.0, Large Unclassified Cells % 1.1 , Large Unclassified Cells # 0.1, Anion Gap 6L, Glomerular Filtration Rate > 60.0, Blood Urea Nitrogen 9, Creatinine 0.84, Sodium Level 137, Potassium Level 3.4L, Chloride Level 99, Carbon Dioxide Level 32, Calcium Level 7.8L CBC/BMP Laboratory Tests 08/05/17 07:07 Red Blood Count 3.98 L, Mean Corpuscular Volume 88.3, Mean Corpuscular Hemoglobin 30.0, Mean Corpuscular Hemoglobin Concent 33.9, Red Cell Distribution Width 13.5, Neutrophils (%) (Auto) 81.6 H, Lymphocytes (%) (Auto) 10.3 L, Monocytes (%) (Auto) 5.6 H, Eosinophils (%) (Auto) 1.2, Basophils (%) ( Auto) 0.2, Neutrophils # (Auto) 9.6 H, Lymphocytes # (Auto) 1.4 L, Monocytes # ( Auto) 0.7, Eosinophils # (Auto) 0.1, Basophils # (Auto) 0.0, Calcium Level 7.8 L Microbiology Microbiology 08/03/17 Blood Culture - Preliminary, Resulted No Growth after 48 hours. All Specime... 08/02/17 Blood Culture - Preliminary, Resulted No Growth after 48 hours. All Specime... 08/03/17 Gram Stain - Final, Complete 08/03/17 CSF Culture - Final, Complete 08/03/17 Fungal Smear, Received Pending 08/03/17 Fungal Culture, Received Pending 08/03/17 , Received Pending 08/03/17 Viral Culture, Received Pending MEL KEARNS Aug 05, 2017 08:17
[2017-08-05 08:43] LABS: REASON FOR REVIEW COMPREHENSIVE REVIEW
[2017-08-05] MEDS: DULoxetine 30 MG CAP (CYMBALTA) PO SCH (08:46)
[2017-08-05] MEDS: VERAPAMIL 120 MG SR TAB PO SCH ×2 (08:47→20:28)
[2017-08-05] MEDS ORDERED: INFLUENZA QUADRIVALENT PF VACCINE 0.5ML SYRINGE (90686) IM SCH (09:00)
[2017-08-05] MEDS ORDERED: CALCIUM GLUCONATE 1,000 MG in D5W MINI-BAG PLUS 100 ML IV ONE (10:00)
[2017-08-05 12:00] VITALS: BP 143/77
[2017-08-05 12:08] LABS: MAGNESIUM LEVEL 2.1 MG/DL (1.8-2.4)
[2017-08-05] MEDS: FERROUS SULFATE 325MG TAB PO SCH (14:15)
[2017-08-05] MEDS: ASCORBIC ACID 250 MG TAB PO SCH (14:16)
[2017-08-05] MEDS: ACETAMINOPHEN 500 MG TAB PO PRN (14:54)
[2017-08-05 16:00] VITALS: BP 133/68
[2017-08-05] MEDS ORDERED: SUMAtriptan SUCCINATE 25 MG TAB PO ONE (17:00)
[2017-08-05 20:00] VITALS: BP 131/73
[2017-08-05] MEDS: PRAVASTATIN 20 MG TAB PO SCH (20:28)
[2017-08-05] MEDS: SODIUM CHLORIDE NASAL 0.65% SPRAY BTL (OCEAN) SCH (20:29)
[2017-08-05] MEDS: FLUTICASONE PROP 0.05% NASAL SPRAY 16 GM (FLONASE) SCH (20:30)
[2017-08-06] MEDS: KETOROLAC 30 MG/ML VIAL (J1885) IV PRN ×4 (01:16→21:55)
[2017-08-06 04:00] VITALS: BP 139/64
[2017-08-06] MEDS: HEPARIN SOD (PORCINE) 5000 UNITS/ML VIAL SC SCH ×3 (06:21→21:39)
[2017-08-06] MEDS: ACETAMINOPHEN 500 MG TAB PO PRN ×2 (06:21→17:39)
[2017-08-06] MEDS: NS IV SCH ×3 (06:22→21:39)
[2017-08-06] MEDS: ACYCLOVIR IV SCH ×3 (06:22→21:39)
[2017-08-06 07:26] LABS: BASO % 0.2 % (0.0-1.0); EOS # 0.1 K/mm3 (0.0-0.50); EOS % 0.8 % (0.0-3.0); LARGE UNSTAINED CELL # 0.1 K/mm3 (0.0-0.4); LARGE UNSTAINED CELL % 1.2 % (0.0-4.0); LYMPH # 1.5 K/mm3 (1.5-4.5); LYMPH % 13.6 % (24.0-44.0); MEAN CORPUSCULAR HEMOGLOBIN 29.5 pg (27.0-33.0); MEAN CORPUSCULAR HGB CONC 33.2 g/dl (32.0-36.5); MONO # 0.6 K/mm3 (0.0-0.8); MONO % 5.7 % (0.0-5.0); NEUTROPHILS # 7.7 K/mm3 (1.8-7.7); NEUTROPHILS % 78.5 % (36.0-66.0); PLATELET COUNT, AUTOMATED 168 k/mm3 (150-450); RED CELL DISTRIBUTION WIDTH 13.4 % (11.5-14.5); WHITE BLOOD COUNT 9.8 K/mm3 (4.0-10.0)
[2017-08-06 07:42] LABS: ANION GAP 7 MEQ/L (8-16); BLOOD UREA NITROGEN 8 MG/DL (7-18); CALCIUM LEVEL 7.8 MG/DL (8.5-10.1); CARBON DIOXIDE LEVEL 32 MEQ/L (21-32); CHLORIDE LEVEL 102 MEQ/L (98-107); CREATININE FOR GFR 0.69 MG/DL (0.70-1.30); GLOMERULAR FILTRATION RATE > 60.0 (>56); GLUCOSE, FASTING 145 MG/DL (70-105); POTASSIUM SERUM 3.4 MEQ/L (3.5-5.1); SODIUM LEVEL 141 MEQ/L (136-145)
[2017-08-06 08:00] VITALS: BP 124/61
[2017-08-06] MEDS: DULoxetine 30 MG CAP (CYMBALTA) PO SCH (08:12)
[2017-08-06] MEDS: FERROUS SULFATE 325MG TAB PO SCH (08:12)
[2017-08-06] MEDS: HumaLOG INSULIN (NovoLOG) PER UNIT SC SCH ×4 (08:12→21:00)
[2017-08-06] MEDS: VERAPAMIL 120 MG SR TAB PO SCH ×2 (08:13→21:38)
[2017-08-06] MEDS: ASCORBIC ACID 250 MG TAB PO SCH (08:13)
[2017-08-06] MEDS: SODIUM CHLORIDE NASAL 0.65% SPRAY BTL (OCEAN) SCH ×2 (08:13→21:38)
[2017-08-06] MEDS ORDERED: cefTRIAXone SOD 2 GM in D5W MINI-BAG PLUS 50 ML IV SCH (10:00)
--- NOTE | 2017-08-06 12:20 | IPNPDOC ---
Subjective Date Seen The patient was seen on 08/06/17. Subjective Chief Complaint/HPI The patient is a 52-year-old male admitted with a reason for visit of Meningitis. Events since last encounter Pateint saturating at 83% in Room air at rest denies any sob , denies any cough or phlegm . continues to have headache no neck pain is better . Also complains of bilateral ear aches, no ear discharge. Also complains of pain over the sinuses. Objective Physical Examination General Exam: Positive: Alert, Cooperative, No Acute Distress Eye Exam: Positive: PERRLA, Conjunctiva & lids normal, EOMI, Negative: Sclera icteric, Ptosis ENT Exam: Positive: Atraumatic, Mucous membr. moist/pink, Pharynx Normal, Tongue Midline, Nares Patent, Ext Auditory Canal Nml (with white coating in the iner aspect also perforated drum on the right. ), Other ENT (tenderness over the frontal and maxillary sinuses. ), Negative: Pharyngeal Edema Neck Exam: Positive: Supple, +2 carotid pulse wo bruit, Negative: JVD, thyromegaly, Lymphadenopathy Chest Exam: Positive: Clear to auscultation, Normal air movement, Negative: Rales, Rhonchi, Wheezing, Diminished Heart Exam: Positive: Rate Normal, Tachycardic, Regular Rhythm, Normal S1, Normal S2, Negative: Gallops, Murmurs, Rubs Abdomen Exam: Positive: Normal bowel sounds, Soft, Negative: Tenderness, Hepatospenomegaly, Mass, Hernia Extremity Exam: Positive: Normal pulses (tachycardic), Negative: Clubbing, Cyanosis, Edema, Tenderness Skin Exam: Negative: Rash, Breakdown Neuro Exam: Positive: Normal Speech, Strength at 5/5 X4 ext, Cranial Nerves 3- 12 NL Assessment /Plan Problems (1) Hypoxia Status: Acute Problem Text: saturates on 84 % at rest in room air. will probably need home oxygen on discharge continue incentive spirometry cxr right basilar atelectasis. will get CT chest Has SAV worsened (2) Meningitis Status: Acute Problem Text: looks viral or aseptic. lymphocytic will continue with acyclovir and ceftriaxone csf culture negative. but ceftriaxone continued as seems to have associated acute sinusitis and ear infections. csf viral pcr and fungal smear pending. 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 will consult ID. (3) KARLEE (acute kidney injury) Status: Resolved (4) Diabetes Status: Chronic (5) Hypertension Status: Chronic (6) Hyperlipidemia Status: Chronic (7) SAV (obstructive sleep apnea) Status: Chronic Problem Text: needs oxygen. (8) Anxiety and depression Status: Chronic (9) Chronic back pain Status: Chronic (10) History of kidney stones Status: Chronic (11) Acute sinusitis Status: Acute Problem Text: will continue ceftriaxone. Plan/VTE VTE Prophylaxis Ordered?: Yes (TEDs, sequential, knee-high compression, heparin 5000 units subcutaneous every 8 hours) Plan IVF: Initiate Diet: Continue Current Activity: Encourage Ambulation Medications: Change to IV Diagnostics: Check Labs, Repeat Labs in AM, Obtain Cultures Anticipated Discharge: Home VS, I&O, 24H, [facility] Vital Signs/I&O Vital Signs Date Time Temp Pulse Resp B/P (MAP) Pulse Ox O2 Delivery O2 Flow Rate FiO2 08/06/17 11:00 88 Nasal Cannula 4.0 08/06/17 08:13 60 139/64 08/06/17 08:00 98.4 20 50 I&O- Last 24 Hours up to 6 AM 08/06/17 06:00 Intake Total 2860 ml Output Total 3050 ml Balance -190 ml Laboratory Data 24H LABS Laboratory Tests 2 08/06/17 07:11: White Blood Count 9.8, Red Blood Count 3.87L, Hemoglobin 11.4L, Hematocrit 34.4L , Mean Corpuscular Volume 89.0, Mean Corpuscular Hemoglobin 29.5, Mean Corpuscular Hemoglobin Concent 33.2, Red Cell Distribution Width 13.4, Platelet Count 168, Neutrophils (%) (Auto) 78.5H, Lymphocytes (%) (Auto) 13.6L, Monocytes (%) (Auto) 5.7H, Eosinophils (%) (Auto) 0.8, Basophils (%) (Auto) 0.2 , Neutrophils # (Auto) 7.7, Lymphocytes # (Auto) 1.5, Monocytes # (Auto) 0.6, Eosinophils # (Auto) 0.1, Basophils # (Auto) 0.0, Large Unclassified Cells % 1.2 , Large Unclassified Cells # 0.1, Anion Gap 7L, Glomerular Filtration Rate > 60.0, Blood Urea Nitrogen 8, Creatinine 0.69L, Sodium Level 141, Potassium Level 3.4L, Chloride Level 102, Carbon Dioxide Level 32, Calcium Level 7.8L CBC/BMP Laboratory Tests 08/06/17 07:11 Red Blood Count 3.87 L, Mean Corpuscular Volume 89.0, Mean Corpuscular Hemoglobin 29.5, Mean Corpuscular Hemoglobin Concent 33.2, Red Cell Distribution Width 13.4, Neutrophils (%) (Auto) 78.5 H, Lymphocytes (%) (Auto) 13.6 L, Monocytes (%) (Auto) 5.7 H, Eosinophils (%) (Auto) 0.8, Basophils (%) ( Auto) 0.2, Neutrophils # (Auto) 7.7, Lymphocytes # (Auto) 1.5, Monocytes # (Auto ) 0.6, Eosinophils # (Auto) 0.1, Basophils # (Auto) 0.0, Calcium Level 7.8 L Microbiology Microbiology 08/03/17 Blood Culture - Final, Complete 08/02/17 Blood Culture - Final, Complete 08/03/17 Gram Stain - Final, Complete 08/03/17 CSF Culture - Final, Complete 08/03/17 Fungal Smear, Received Pending 08/03/17 Fungal Culture, Received Pending 08/03/17 , Received Pending 08/03/17 Viral Culture, Received Pending 08/05/17 Influenza Virus Type A Antigen - Final, Complete 08/05/17 Influenza Virus Type B Antigen - Final, Complete LANIE BEACH MD Aug 06, 2017 12:20
--- NOTE | 2017-08-06 14:48 | REP ---
Clinical: Hypoxia. Findings: Small to moderate bilateral pleural effusions with right upper lobe and bilateral lower lobe consolidations and atelectasis (right greater than left) are appreciated. Tracheobronchial tree is patent. No pneumothorax. Mediastinum demonstrates relatively normal thoracic aorta and heart/pericardium. Mediastinal lymph nodes up to 9 mm short axis diameter likely reactive. No axillary adenopathy. Surrounding musculoskeletal structures are intact without focal osseous abnormality. Impression: Moderate bilateral pleural effusions with associated lower lobe consolidations/atelectasis and minimal right upper lobe air space disease. The Signed by Korey Shay MD 08/06/2017 02:39 P
[2017-08-06 16:00] VITALS: BP 128/75
--- NOTE | 2017-08-06 16:57 | CR ---
DATE OF CONSULTATION: 08/06/2017 REASON FOR CONSULTATION: Asked to consult for evaluation of viral meningitis. 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 The patient developed 1 week symptoms of neck pain, shoulder pain and headache. He was noted by his to have chills and being very achy. The pain was so severe he could not turn his head. He was feeling unsteady on his feet. He had fever and chills. He also had some night sweats. The patient was brought to the emergency room. He had a lumbar puncture which was suggestive of viral meningitis, white cells 265, red cells 27, 10% neutrophils, 60% lymphocytes, 29% monocytes, total protein 144. The patient was started on IV Rocephin, acyclovir, ampicillin and vancomycin for 24 hours. These were discontinued. The patient has slowly improved but developed hypoxia and pleural effusion. The patient has been on oxygen currently at 4 liters. PAST MEDICAL HISTORY: Is significant for an episode of viral meningitis at the age of 12, the patient was hospitalized for a month according to his history at [facility], hypertension, type 2 diabetes, chronic sinusitis, depression, dyslipidemia, obstructive sleep apnea, history of tennis elbow, serous otitis media, cholesteatoma. PAST SURGICAL HISTORY: Nasal surgery and tympanic membrane repair. FAMILY HISTORY: Father is 80 with hypertension and diabetes. Mother is alive and well. SOCIAL HISTORY: He lives with his . They have been for 18 years. He has never been before. He has an adult son who is 26 and healthy. REVIEW OF SYSTEMS: The patient denies any nausea, vomiting, diarrhea, abdominal pain. He has no rashes. He had fever and chills that have improved. He has severe headache, improving. The patient denies dysuria, frequency or hematuria. He has never had genital ulcers or genital discharge, never had a history of herpes type 1 or type 2. PHYSICAL EXAMINATION: He is a pleasant, healthy looking gentleman, in no acute distress. Temperature is 98.4, pulse 72, respirations 20, blood pressure 124/61, oxygen saturation 88% on 4 liters nasal cannula. Heart: Normal S1, S2. No murmurs. Lungs are clear. No wheezes, rales, or rhonchi. Abdomen: Obese, soft, nontender. Extremities: No clubbing, cyanosis or edema. No calf tenderness. Neck is supple. No JVD. No carotid bruits. No stiffness. Negative Kernig and Brudzinski. Back: No CVA tenderness. LP site is clean. Negative straight leg raising. LABORATORY DATA: White count was 9.8 down from 12, hemoglobin 11.4, hematocrit 34.4, platelets 168. ESR 10. Sodium 141, potassium 3.4, chloride 102, bicarbonate 32, BUN 8, creatinine 0.7, glucose 145, calcium 7.8, magnesium 2.1, iron 22, TIBC 350, iron saturation 6% ferritin 98. Blood cultures negative times two on 08/03/2017. Viral culture pending. Fungal smear and culture pending. Influenza A and B negative. 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 IMAGING STUDY: Chest CT done on 08/06/2017, shows moderate bilateral pleural effusion with consolidation and minimal right upper lobe airway disease. Chest x-ray done on 08/04/2017, showed interstitial edema. Head CT done on 08/03/2017, showed frontal sinusitis, acute on chronic mucosal inflammatory disease. IMPRESSION: This is a 52-year-old gentleman who was admitted with a severe headache with LP suggestive of aseptic meningitis. CT of the head shows also frontal sinusitis. The patient has developed fluid overload with hypoxia with bilateral pleural effusion. CSF study was positive for HSV II PCR, the patient was told the results. He was told that it could be reactivation of disease as well. PLAN Suggest discontinuing IV Rocephin. Switched to by mouth Omnicef for frontal sinusitis. The patient could also be switched to Valtrex 1 gram by mouth twice a day to finish a 10-day treatment for aseptic meningitis. I would suggest obtaining an echocardiogram for evaluation of pleural effusion. and IV lasix Thank you for consultation. ANA
[2017-08-06 20:00] VITALS: BP 129/75
[2017-08-06] MEDS: CEFDINIR 300 MG CAP (OMNICEF) PO SCH (21:37)
[2017-08-06] MEDS: PRAVASTATIN 20 MG TAB PO SCH (21:37)
[2017-08-06] MEDS: FLUTICASONE PROP 0.05% NASAL SPRAY 16 GM (FLONASE) SCH (21:38)
[2017-08-07] VITALS: BP 105/54
[2017-08-07] MEDS: KETOROLAC 30 MG/ML VIAL (J1885) IV PRN (04:11)
[2017-08-07] MEDS: NS IV SCH (06:07)
[2017-08-07] MEDS: ACYCLOVIR IV SCH (06:07)
[2017-08-07] MEDS: HEPARIN SOD (PORCINE) 5000 UNITS/ML VIAL SC SCH ×3 (06:07→21:49)
[2017-08-07 08:00] VITALS: BP 139/76
[2017-08-07 08:04] LABS: BASO % 0.5 % (0.0-1.0); EOS # 0.3 K/mm3 (0.0-0.50); LARGE UNSTAINED CELL # 0.1 K/mm3 (0.0-0.4); LARGE UNSTAINED CELL % 1.7 % (0.0-4.0); LYMPH # 1.1 K/mm3 (1.5-4.5); LYMPH % 15.8 % (24.0-44.0); MEAN CORPUSCULAR HEMOGLOBIN 29.4 pg (27.0-33.0); MEAN CORPUSCULAR HGB CONC 32.5 g/dl (32.0-36.5); MEAN CORPUSCULAR VOLUME 90.4 fl (80.0-96.0); MONO # 0.3 K/mm3 (0.0-0.8); MONO % 4.6 % (0.0-5.0); NEUTROPHILS # 5.2 K/mm3 (1.8-7.7); NEUTROPHILS % 73.4 % (36.0-66.0); PLATELET COUNT, AUTOMATED 202 k/mm3 (150-450); RED CELL DISTRIBUTION WIDTH 13.5 % (11.5-14.5)
[2017-08-07] MEDS: DULoxetine 30 MG CAP (CYMBALTA) PO SCH (08:28)
[2017-08-07] MEDS: HumaLOG INSULIN (NovoLOG) PER UNIT SC SCH ×4 (08:28→21:00)
[2017-08-07] MEDS: CEFDINIR 300 MG CAP (OMNICEF) PO SCH ×2 (08:28→21:53)
[2017-08-07] MEDS: ASCORBIC ACID 250 MG TAB PO SCH (08:28)
[2017-08-07] MEDS: FERROUS SULFATE 325MG TAB PO SCH (08:28)
[2017-08-07] MEDS: VERAPAMIL 120 MG SR TAB PO SCH ×2 (08:28→21:52)
[2017-08-07] MEDS: SODIUM CHLORIDE NASAL 0.65% SPRAY BTL (OCEAN) SCH ×2 (08:33→21:50)
[2017-08-07] MEDS: ACETAMINOPHEN 500 MG TAB PO PRN ×2 (08:34→19:50)
[2017-08-07 08:37] LABS: ANION GAP 9 MEQ/L (8-16); BLOOD UREA NITROGEN 7 MG/DL (7-18); CALCIUM LEVEL 7.9 MG/DL (8.5-10.1); CARBON DIOXIDE LEVEL 30 MEQ/L (21-32); CHLORIDE LEVEL 105 MEQ/L (98-107); CREATININE FOR GFR 0.74 MG/DL (0.70-1.30); GLOMERULAR FILTRATION RATE > 60.0 (>56); GLUCOSE, FASTING 148 MG/DL (70-105); POTASSIUM SERUM 3.4 MEQ/L (3.5-5.1); SODIUM LEVEL 144 MEQ/L (136-145)
[2017-08-07] MEDS ORDERED: IBUPROFEN 800 MG TAB PO PRN (10:15)
[2017-08-07] MEDS ORDERED: FUROSEMIDE 40 MG/4 ML VIAL (J1940) IV ONE (11:00)
[2017-08-07] MEDS: valACYclovir HCL 500 MG TAB PO SCH ×2 (11:42→21:51)
--- NOTE | 2017-08-07 13:49 | IPNPDOC ---
Subjective Date Seen The patient was seen on 08/07/17. Subjective Chief Complaint/HPI The patient is a 52-year-old male admitted with a reason for visit of Meningitis. Events since last encounter still with headache but getting slowly better, no sob , no cough or phlegm , no abdominal pain , nausea or vomiting or diarrhea. CT chest showed moderate bilateral pleural effusion and right atelectasis. Still requiring oxygen. Objective Physical Examination General Exam: Positive: Alert, Cooperative, No Acute Distress Eye Exam: Positive: PERRLA, Conjunctiva & lids normal, EOMI, Negative: Sclera icteric, Ptosis ENT Exam: Positive: Atraumatic, Mucous membr. moist/pink, Pharynx Normal, Tongue Midline, Nares Patent, Ext Auditory Canal Nml (with white coating in the iner aspect also perforated drum on the right. ), Other ENT (tenderness over the frontal and maxillary sinuses. ), Negative: Pharyngeal Edema Neck Exam: Positive: Supple, +2 carotid pulse wo bruit, Negative: JVD, thyromegaly, Lymphadenopathy Chest Exam: Positive: Clear to auscultation, Normal air movement, Rales (right base), Diminished (at the right base), Negative: Rhonchi, Wheezing Heart Exam: Positive: Rate Normal, Tachycardic, Regular Rhythm, Normal S1, Normal S2, Negative: Gallops, Murmurs, Rubs Abdomen Exam: Positive: Normal bowel sounds, Soft, Negative: Tenderness, Hepatospenomegaly, Mass, Hernia Extremity Exam: Positive: Normal pulses (tachycardic), Negative: Clubbing, Cyanosis, Edema, Tenderness Skin Exam: Negative: Rash, Breakdown Neuro Exam: Positive: Normal Speech, Strength at 5/5 X4 ext, Cranial Nerves 3- 12 NL Assessment /Plan Problems (1) Hypoxia Status: Acute Problem Text: saturates on 84 % at rest in room air. continue incentive spirometry cxr right basilar atelectasis. CT chest bilateral mod pleural effusion R.L with right atelectasis Has fluid overload . will get echo and give lasix. (2) Meningitis Status: Acute Problem Text: Herpes simplex 2 viral meningitis will change to valtrex to complete a 10 day course of antivirals. (3) KARLEE (acute kidney injury) Status: Resolved (4) Diabetes Status: Chronic (5) Hypertension Status: Chronic (6) Hyperlipidemia Status: Chronic (7) SAV (obstructive sleep apnea) Status: Chronic Problem Text: does not use his CPAP machine says very uncomfortable will ask respiratory to see if he is using it correctly or not. (8) Anxiety and depression Status: Chronic (9) Chronic back pain Status: Chronic (10) History of kidney stones Status: Chronic (11) Acute sinusitis Status: Acute Problem Text: on cefdinir. Plan/VTE VTE Prophylaxis Ordered?: Yes (TEDs, sequential, knee-high compression, heparin 5000 units subcutaneous every 8 hours) Plan IVF: Initiate Diet: Continue Current Activity: Encourage Ambulation Medications: Change to IV Diagnostics: Check Labs, Repeat Labs in AM, Obtain Cultures Anticipated Discharge: Home VS, I&O, 24H, [facility] Vital Signs/I&O Vital Signs Date Time Temp Pulse Resp B/P (MAP) Pulse Ox O2 Delivery O2 Flow Rate FiO2 08/07/17 12:00 94 Room Air 08/07/17 09:00 4.0 08/07/17 08:28 67 139/76 08/07/17 08:00 98.3 20 08/06/17 08:00 50 I&O- Last 24 Hours up to 6 AM 08/07/17 06:00 Intake Total 1990 ml Output Total 2625 ml Balance -635 ml Laboratory Data 24H LABS Laboratory Tests 2 08/06/17 16:59: Bedside Glucose (Misc Panel) 117H 08/06/17 21:16: Bedside Glucose (Misc Panel) 172H 08/07/17 07:34: White Blood Count 7.0, Red Blood Count 3.99L, Hemoglobin 11.7L, Hematocrit 36.1L , Mean Corpuscular Volume 90.4, Mean Corpuscular Hemoglobin 29.4, Mean Corpuscular Hemoglobin Concent 32.5, Red Cell Distribution Width 13.5, Platelet Count 202, Neutrophils (%) (Auto) 73.4H, Lymphocytes (%) (Auto) 15.8L, Monocytes (%) (Auto) 4.6, Eosinophils (%) (Auto) 4.0H, Basophils (%) (Auto) 0.5 , Neutrophils # (Auto) 5.2, Lymphocytes # (Auto) 1.1L, Monocytes # (Auto) 0.3, Eosinophils # (Auto) 0.3, Basophils # (Auto) 0.0, Large Unclassified Cells % 1.7 , Large Unclassified Cells # 0.1, Anion Gap 9, Glomerular Filtration Rate > 60.0 , Blood Urea Nitrogen 7, Creatinine 0.74, Sodium Level 144, Potassium Level 3.4L , Chloride Level 105, Carbon Dioxide Level 30, Calcium Level 7.9L 08/07/17 08:02: Bedside Glucose (Misc Panel) 129H 08/07/17 11:48: Bedside Glucose (Misc Panel) 163H CBC/BMP Laboratory Tests 08/07/17 07:34 Red Blood Count 3.99 L, Mean Corpuscular Volume 90.4, Mean Corpuscular Hemoglobin 29.4, Mean Corpuscular Hemoglobin Concent 32.5, Red Cell Distribution Width 13.5, Neutrophils (%) (Auto) 73.4 H, Lymphocytes (%) (Auto) 15.8 L, Monocytes (%) (Auto) 4.6, Eosinophils (%) (Auto) 4.0 H, Basophils (%) ( Auto) 0.5, Neutrophils # (Auto) 5.2, Lymphocytes # (Auto) 1.1 L, Monocytes # ( Auto) 0.3, Eosinophils # (Auto) 0.3, Basophils # (Auto) 0.0, Calcium Level 7.9 L Microbiology Microbiology 08/03/17 Blood Culture - Final, Complete 08/02/17 Blood Culture - Final, Complete 08/03/17 Gram Stain - Final, Complete 08/03/17 CSF Culture - Final, Complete 08/03/17 Fungal Smear, Received Pending 08/03/17 Fungal Culture, Received Pending 08/03/17 - Final, Complete Herpes Simplex Virus 2 08/03/17 Viral Culture, Received Pending 08/05/17 Influenza Virus Type A Antigen - Final, Complete 08/05/17 Influenza Virus Type B Antigen - Final, Complete LANIE BEACH MD Aug 07, 2017 13:49
[2017-08-07 16:00] VITALS: BP 120/79
[2017-08-07 20:00] VITALS: BP 127/67
[2017-08-07] MEDS: FLUTICASONE PROP 0.05% NASAL SPRAY 16 GM (FLONASE) SCH (21:50)
[2017-08-07] MEDS: PRAVASTATIN 20 MG TAB PO SCH (21:53)
[2017-08-08] VITALS: BP 140/71
[2017-08-08] MEDS: ACETAMINOPHEN 500 MG TAB PO PRN ×2 (06:17→13:51)
[2017-08-08 06:52] LABS: BASO % 0.7 % (0.0-1.0); EOS # 0.2 K/mm3 (0.0-0.50); EOS % 4.3 % (0.0-3.0); LARGE UNSTAINED CELL # 0.1 K/mm3 (0.0-0.4); LARGE UNSTAINED CELL % 1.5 % (0.0-4.0); LYMPH # 1.4 K/mm3 (1.5-4.5); LYMPH % 21.2 % (24.0-44.0); MEAN CORPUSCULAR HEMOGLOBIN 29.6 pg (27.0-33.0); MEAN CORPUSCULAR VOLUME 92.5 fl (80.0-96.0); MONO # 0.3 K/mm3 (0.0-0.8); MONO % 5.1 % (0.0-5.0); NEUTROPHILS % 67.2 % (36.0-66.0); PLATELET COUNT, AUTOMATED 227 k/mm3 (150-450); RED CELL DISTRIBUTION WIDTH 13.7 % (11.5-14.5); WHITE BLOOD COUNT 5.9 K/mm3 (4.0-10.0)
[2017-08-08 07:04] LABS: ANION GAP 7 MEQ/L (8-16); BLOOD UREA NITROGEN 10 MG/DL (7-18); CALCIUM LEVEL 7.8 MG/DL (8.5-10.1); CARBON DIOXIDE LEVEL 33 MEQ/L (21-32); CHLORIDE LEVEL 104 MEQ/L (98-107); CREATININE FOR GFR 0.95 MG/DL (0.70-1.30); GLOMERULAR FILTRATION RATE > 60.0 (>56); GLUCOSE, FASTING 153 MG/DL (70-105); POTASSIUM SERUM 3.5 MEQ/L (3.5-5.1); SODIUM LEVEL 144 MEQ/L (136-145)
[2017-08-08 08:00] VITALS: BP 170/94
[2017-08-08] MEDS ORDERED: FUROSEMIDE 40 MG/4 ML VIAL (J1940) IV ONE (08:00)
[2017-08-08] MEDS: HumaLOG INSULIN (NovoLOG) PER UNIT SC SCH ×2 (08:21→11:52)
[2017-08-08] MEDS: CEFDINIR 300 MG CAP (OMNICEF) PO SCH (08:21)
[2017-08-08 08:22] VITALS: BP 170/94
[2017-08-08] MEDS: FERROUS SULFATE 325MG TAB PO SCH (08:22)
[2017-08-08] MEDS: DULoxetine 30 MG CAP (CYMBALTA) PO SCH (08:22)
[2017-08-08] MEDS: VERAPAMIL 120 MG SR TAB PO SCH (08:22)
[2017-08-08] MEDS: valACYclovir HCL 500 MG TAB PO SCH (08:22)
[2017-08-08] MEDS: SODIUM CHLORIDE NASAL 0.65% SPRAY BTL (OCEAN) SCH (08:23)
[2017-08-08] MEDS: ASCORBIC ACID 250 MG TAB PO SCH (08:29)
[2017-08-08 10:00] VITALS: BP 140/79
[2017-08-08] MEDS ORDERED: VALA500T2 PO (13:34)
[2017-08-08] MEDS ORDERED: CEFD300CAP PO (13:34)
[2017-08-08 16:00] VITALS: BP 126/76
--- NOTE | 2017-08-08 17:53 | ECHO ---
DATE OF PROCEDURE: 08/08/2017 REFERRING PHYSICIAN: Dr. Cortney Moreno Study was performed on 08/08/2017 for indication dyspnea. The patient measures 168 cm and weighs 86 kg. DIMENSIONS: IVS: 1.2 LV: 4.4 LVPW: 1.0 LA: 4.4 Aorta: 3.1 FINDINGS: The study is of good technical quality. Left ventricle is normal size and systolic function, estimated left ventricular ejection fraction (LVEF) 65-70%. Borderline left ventricular hypertrophy (LVH) is noted. Right ventricle is also normal size and systolic function. Left atrium is at least mildly enlarged. Right atrium appears normal. All four cardiac valves were reasonably well seen and appear normal. Trivial noncompressive pericardial effusion is noted. Inferior vena cava is borderline dilated but collapses with respiration. Aortic root and aortic arch appear normal. Abdominal aorta also appears normal. Doppler interrogation reveals no aortic stenosis and mild aortic insufficiency. There is also mild mitral and trace tricuspid insufficiency. Unfortunately, quality of TR jet was not adequate to estimate pulmonary artery pressure. There is also trace pulmonic insufficiency. Mitral inflow pattern and tissue Doppler imaging of mitral annulus revealed probably normal diastolic function even though tissue Doppler velocities are mildly reduced (8.2 and 8.7 cm/s in medial and septal and mitral annulus respectively). CONCLUSIONS: 1. Study is of good technical quality. 2. Normal left ventricular (LV) size with borderline LVH and preserved LV systolic function. Likely normal diastolic function. 3. No significant valvular disease. 4. Probably mildly elevated central venous pressure. 5. Unable to estimate pulmonary artery pressure. COMMENTS: Subacute bacterial endocarditis (SBE) prophylaxis is not recommended. Study does not provide obvious explanation for dyspnea.
--- NOTE | 2017-08-09 11:19 | DSES ---
DATE OF ADMISSION: 08/03/2017 DATE OF DISCHARGE: 08/08/2017 PRIMARY CARE PROVIDER: Choco Thomas DISCHARGE DIAGNOSES: 1. Herpes simplex virus meningitis. 2. Acute hypoxic respiratory failure contributed to fluid overload. 3. Obstructive sleep apnea, does not use his continuous positive airway pressure (CPAP). 4. Acute kidney injury. 5. Diabetes. 6. Hypertension. 7. Hyperlipidemia. 8. Acute sinusitis. 9. Anxiety and depression. 10. Chronic back pain. 11. History of kidney stones. DISCHARGE MEDICATIONS: - cefdinir 300 mg by mouth twice a day - Valacyclovir 1000 mg by mouth twice a day - azelastine two sprays in both nostrils daily - Celecoxib 200 mg by mouth twice a day - Cymbalta 60 mg by mouth daily - Flonase two sprays in both nostrils at night - Victoza 0.6 units subcutaneously at night - losartan potassium 25 mg by mouth daily - metformin 1000 mg by mouth twice a day - pravastatin 20 mg by mouth at bedtime - verapamil extended release 240 mg by mouth twice a day HOSPITAL COURSE: This is a 52-year-old male who presented to the hospital with a one week history of severe headache, neck pain, fever, dizziness, nausea. The patient also complained of severe pain in his sinuses. He underwent a lumbar puncture, which was suggestive of a septic meningitis. Herpes simplex virus PCR from the cerebrospinal fluid came back positive. The patient was started on acyclovir and ceftriaxone. Ceftriaxone was discontinued when herpes simplex virus came back positive. During the hospitalization, from day 2 of admission, the patient was noted to be persistently hypoxic on room air at around 83% whether awake or asleep. The patient was given diuresis with mild improvement. The patient subsequently had a CT scan of the chest which showed bilateral mild to moderate pleural effusions and right sided atelectasis. The patient was started on insulin, did spirometry and daily Lasix. The patient's persistent hypoxia was felt to be due to fluid overload. The patient underwent an echocardiogram, which had normal systolic function of 65 to 70%. Normal diastolic function, no significant valvular heart disease. Borderline left ventricular hypertrophy. Echocardiogram did not reveal any cause of dyspnea. After receiving diuresis for 2 days with a negative balance, the patient's hypoxia improved and he was not requiring any oxygen during the daytime; however , he was persistently noted to have episodes of apnea and hypoxia during sleep. The patient has his own continuous positive airway pressure (CPAP) machine; however, he was not using it. He was continued with oxygen at night. On the day of discharge, the patient did not have any complaints. His headache has improved significantly. He was tested for home oxygen and he did not drop his saturations after exercise, so it was determined that he did not need home oxygen at this time; however, he was strongly urged to try and use his CPAP machine. His vitals were stable and he was functioning at baseline. PHYSICAL EXAMINATION: VITAL SIGNS: Temperature 98.7, pulse 66, respiratory rate 18, blood pressure 126/76, pulse oximetry 93% on room air. GENERAL: The patient is awake, alert, oriented times three, sitting up in bed in no acute distress. HEENT: Normocephalic, atraumatic. Moist mucous membranes. Anicteric eyes. CHEST: There is decreased breath sounds in the right base, as well as some crackles. CARDIOVASCULAR: S1, S2. Regular. No rub, murmur or gallop. ABDOMEN : Obese, soft, nontender. Bowel sounds are present. EXTREMITIES: No edema. LABORATORY DATA: WBC 5.9, hemoglobin 12.1, platelets 227, sodium 144, potassium 3.5, chloride 104 , bicarbonate 33, BUN 10, creatinine 0.9, glucose 153, calcium 7.8, iron 22, ferritin 98, transferrin saturation 6.3%. CSF showed WBC of 265, RBC 27, neutrophil 10%, lymphocytes 60%, monocytes 29%. Total protein 144, glucose 74, IgG 9.5. Oligoclonal bands are pending. CSF culture and gram-stain were negative, aerobically. CSF PCR showed herpes simplex virus II. Blood cultures were negative. Influenza A and B antigens were negative. Peripheral fungal smear and culture are still pending. Echocardiogram showed an ejection fraction of 65 to 70% with normal diastolic function. No significant valvular disease. Mildly elevated central venous pressure, pulmonary pressure could not be estimated. Borderline left ventricular hypertrophy. Right ventricle size was normal with normal systolic function. RADIOLOGY: The patient had a CT of the chest, which showed moderate bilateral pleural effusions with associated lower lobe atelectasis and minimal right upper lobe air space disease. CT of the head showed no evidence of acute intracranial pathology. Showed acute frontal sinusitis, chronic mucosal inflammatory disease in the remaining paranasal sinuses. DISPOSITION: The patient is discharged home in stable condition. DISCHARGE INSTRUCTIONS: The patient is to followup with primary care provider in 1 to 2 weeks. Carbohydrate consistent diet. Activity as tolerated. MTDD
== END 2017-08-08 17:00 | disposition home or self-care (01) | DRG 75 ==
LOC: M ED 21:54 → M ED INP 08-03 05:00 → M PED 08-03 08:35
PROVIDERS: ADMIT Internal Medicine; ATTEND Internal Medicine Nephrology
DX: B00.3 Herpesviral meningitis (principal); J96.01 Acute respiratory failure with hypoxia; N17.9 Acute kidney failure, unspecified; J44.9 Chronic obstructive pulmonary disease, unspecified; Z91.19 Patient's noncompliance with other medical treatment and regimen; E11.9 Type 2 diabetes mellitus without complications; I10 Essential (primary) hypertension; J32.9 Chronic sinusitis, unspecified; E78.5 Hyperlipidemia, unspecified; M54.9 Dorsalgia, unspecified; F41.9 Anxiety disorder, unspecified; F32.9 Major depressive disorder, single episode, unspecified; Z79.84 Long term (current) use of oral hypoglycemic drugs; Z79.899 Other long term (current) drug therapy

== ENCOUNTER → 2017-10-29 | Outpatient (REF) | payer OTHER ==
[~2017-10-29] MED LIST: AZEL0.055; CEFD300CAP PO; CELE1CAP9 PO; DULO1CAP3 PO; FLON1SPR; LOSA25TA8 PO; LOSA50TA20; METF10004 PO; PRAV20TA2 PO; VALA500T2 PO; VERA240C PO; VICT18IN SC
[2017-10-29 12:08] LABS: ALBUMIN 3.8 GM/DL (3.2-5.2); ALBUMIN/GLOBULIN RATIO 1.15 (1.00-1.93); ALKALINE PHOSPHATASE 80 U/L (45-117); ALT/SGPT 29 U/L (12-78); ANION GAP 9 MEQ/L (8-16); AST/SGOT 10 U/L (7-37); BILIRUBIN,TOTAL 0.8 MG/DL (0.2-1.0); BLOOD UREA NITROGEN 12 MG/DL (7-18); CALCIUM LEVEL 8.9 MG/DL (8.5-10.1); CARBON DIOXIDE LEVEL 29 MEQ/L (21-32); CHLORIDE LEVEL 103 MEQ/L (98-107); CHOLESTEROL LEVEL 136 MG/DL (<200); CREATININE FOR GFR 1.04 MG/DL (0.70-1.30); GLOMERULAR FILTRATION RATE > 60.0 (>56); GLUCOSE, FASTING 105 MG/DL (70-105); POTASSIUM SERUM 4.3 MEQ/L (3.5-5.1); SODIUM LEVEL 141 MEQ/L (136-145); TOTAL PROTEIN 7.1 GM/DL (6.4-8.2); TRIGLYCERIDES LEVEL 176 MG/DL (<150)
== END ==
LOC: M SFHCLERA 08:09
PROVIDERS: ATTEND Physician Assistant
DX: E11.9 Type 2 diabetes mellitus without complications (principal); Z12.5 Encounter for screening for malignant neoplasm of prostate

== ENCOUNTER → 2017-12-21 | Outpatient (CLI) | payer OTHER | LOC: M RAD 08:00 | DX: R19.8 Other specified symptoms and signs involving the digestive system and abdomen (principal) | CPT/HCPCS: 74018 ==

== ENCOUNTER 2017-12-31 07:44 | Day surgery (SDC) | payer OTHER ==
[2017-12-31] MEDS: NS 1,000 ML IV (08:00)
[2017-12-31] MEDS ORDERED: PROPOFOL 200 MG/20 ML VIAL As Ordered (09:09)
[2017-12-31] MEDS ORDERED: LIDOCAINE 2% INJ 100 MG/5 ML SDV (FOR ANES.) As Ordered (09:09)
== END 2017-12-31 09:22 | disposition home or self-care (01) ==
LOC: M OPP 07:44
DX: Z12.11 Encounter for screening for malignant neoplasm of colon (principal); K57.30 Diverticulosis of large intestine without perforation or abscess without bleeding; I10 Essential (primary) hypertension; E78.00 Pure hypercholesterolemia, unspecified; R51 Headache; E05.90 Thyrotoxicosis, unspecified without thyrotoxic crisis or storm; M54.9 Dorsalgia, unspecified; F41.9 Anxiety disorder, unspecified; F32.9 Major depressive disorder, single episode, unspecified; G47.33 Obstructive sleep apnea (adult) (pediatric); J30.1 Allergic rhinitis due to pollen; H91.90 Unspecified hearing loss, unspecified ear; Z91.89 Other specified personal risk factors, not elsewhere classified; Z82.3 Family history of stroke
CPT/HCPCS: 45378

== ENCOUNTER → 2018-02-07 | Outpatient (REF) | payer OTHER | LOC: M SFHCLERA 16:01 | DX: J02.9 Acute pharyngitis, unspecified (principal) ==

== ENCOUNTER → 2018-03-04 | Outpatient (REF) | payer OTHER | LOC: M SFHCLERA 19:52 | DX: J02.9 Acute pharyngitis, unspecified (principal) ==

== ENCOUNTER → 2018-09-03 | Outpatient (REF) | payer OTHER | LOC: M SFHCLERA 08:12 | DX: E11.9 Type 2 diabetes mellitus without complications (principal) ==

== ENCOUNTER → 2018-09-08 | Outpatient (REF) | payer OTHER ==
[2018-09-08 13:07] LABS: ESTIMATED AVERAGE GLUCOSE 131 MG/DL (60-110); HEMOGLOBIN A1c 6.2 %
== END ==
LOC: M SFHCLERA 08:33
DX: E11.9 Type 2 diabetes mellitus without complications (principal)

== ENCOUNTER → 2018-12-09 | Outpatient (REF) | payer OTHER ==
[~2018-12-09] MED LIST changes: +LOSA25TA14 PO; -LOSA25TA8 PO; -LOSA50TA20; +LOSA50TA88; -VALA500T2 PO; +VALA500T5 PO
[2018-12-09 12:50] LABS: MAGNESIUM LEVEL 1.9 MG/DL (1.8-2.4)
== END ==
LOC: M SFHCLERA 08:59
PROVIDERS: ATTEND Family Medicine
DX: R25.2 Cramp and spasm (principal); R39.9 Unspecified symptoms and signs involving the genitourinary system

== ENCOUNTER → 2019-03-10 | Outpatient (REF) | payer OTHER ==
[2019-03-10 11:29] LABS: BLOOD UREA NITROGEN 15 MG/DL (7-18); CARBON DIOXIDE LEVEL 27 MEQ/L (21-32); CHLORIDE LEVEL 105 MEQ/L (98-107); CHOLESTEROL LEVEL 145 MG/DL (<200); CHOLESTEROL RISK RATIO 3.152 (<5); CREATININE FOR GFR 0.99 MG/DL (0.70-1.30); GLOMERULAR FILTRATION RATE > 60.0 (>56); GLUCOSE, FASTING 130 MG/DL (70-100); HDL CHOLESTEROL 46 MG/DL (>40); LDL CHOLESTEROL 55 MG/DL (<100); NON-HDL-C 99 MG/DL; POTASSIUM SERUM 4.6 MEQ/L (3.5-5.1); SODIUM LEVEL 139 MEQ/L (136-145); TRIGLYCERIDES LEVEL 222 MG/DL (<150)
[2019-03-10 11:43] LABS: HEMOGLOBIN A1c 6.8 %
== END ==
LOC: M SFHCLERA 08:24
PROVIDERS: ATTEND Family Medicine
DX: E11.9 Type 2 diabetes mellitus without complications (principal); E78.2 Mixed hyperlipidemia; I10 Essential (primary) hypertension

== ENCOUNTER → 2019-03-20 | Outpatient (CLI) | payer OTHER ==
--- NOTE | 2019-03-20 10:14 | REP ---
MAXILLOFACIAL CT WITHOUT CONTRAST: HISTORY: Recurrent sinusitis. COMPARISON: 05/28/2011. A left Dee cell is present. The patient is status-post bilateral uncinectomy with partial ethmoidectomy. Mild mucosal thickening is present in the maxillary sinuses. Minimal mucosal thickening is present in the ethmoid and right sphenoid sinuses. The remaining sinuses are clear. The middle and inferior nasal turbinates are partially paradoxical. There is padmaja bullosa of the left middle nasal turbinate. The nasal septum is midline. The cribriform plate, medial perez of the orbits and optic canals are intact. The carotid canals form a segment of the posterolateral perez of the sphenoid sinus. The sphenoid sinus septum inserts into the right internal carotid canal wall. The patient is status-post right mastoidectomy. Mucosal thickening is present in the right mastoid air cells. IMPRESSION:1. Postoperative changes as described above. 2. Sinus mucosal thickening as described above. Electronically Signed by Bill Mckay MD 03/20/2019 10:35 A
== END ==
LOC: M RAD 08:06
PROVIDERS: ATTEND Family Medicine
DX: J32.9 Chronic sinusitis, unspecified (principal)

== ENCOUNTER → 2019-04-06 | Outpatient (CLI) | payer OTHER ==
--- NOTE | 2019-04-07 02:37 | REP ---
Clinical: Cough . Comparison: 08/04/2017 . Technique: PA and lateral. Findings: The mediastinum and cardiac silhouette are normal. The lung mayorga are clear and without acute consolidation, effusion, or pneumothorax. The skeletal structures are intact and normal. Impression: 1. No acute cardiopulmonary process. Electronically Signed by Korey Shay MD 04/07/2019 02:28 A
== END ==
LOC: M LRY 12:52
PROVIDERS: ATTEND Family Medicine
DX: R05 Cough (principal)

== ENCOUNTER → 2019-04-06 | Outpatient (REF) | payer OTHER ==
[2019-04-06 18:48] LABS: BASO % 0.4 % (0.0-1.0); EOS # 0.3 10^3/uL (0.0-0.50); EOS % 3.5 % (0.0-3.0); HEMATOCRIT 42.3 % (42.0-52.0); HEMOGLOBIN 13.2 g/dl (13.5-17.5); LYMPH # 2.3 10^3/uL (1.5-4.5); LYMPH % 27.8 % (24.0-44.0); MEAN CORPUSCULAR HEMOGLOBIN 28.8 pg (27.0-33.0); MEAN CORPUSCULAR HGB CONC 31.2 g/dl (32.0-36.5); MEAN CORPUSCULAR VOLUME 92.4 fl (80.0-96.0); MONO # 0.6 10^3/uL (0.0-0.8); MONO % 7.8 % (0.0-5.0); NEUTROPHILS % 59.9 % (36.0-66.0); PLATELET COUNT, AUTOMATED 261 10^3/uL (150-450); RED BLOOD COUNT 4.58 10^6/uL (4.30-6.10); WHITE BLOOD COUNT 8.3 10^3/uL (4.0-10.0)
[2019-04-06 19:29] LABS: BLOOD UREA NITROGEN 17 MG/DL (7-18); CALCIUM LEVEL 8.9 MG/DL (8.5-10.1); CARBON DIOXIDE LEVEL 25 MEQ/L (21-32); CHLORIDE LEVEL 105 MEQ/L (98-107); CREATININE FOR GFR 1.14 MG/DL (0.70-1.30); GLOMERULAR FILTRATION RATE > 60.0 (>56); GLUCOSE, FASTING 95 MG/DL (70-100); NT-PRO BNP 34 PG/ML (<125); POTASSIUM SERUM 4.2 MEQ/L (3.5-5.1); SODIUM LEVEL 140 MEQ/L (136-145)
== END ==
LOC: M SFHCLERA 12:45
PROVIDERS: ATTEND Family Medicine
DX: M79.89 Other specified soft tissue disorders (principal)

== ENCOUNTER → 2019-06-08 | Outpatient (REF) | payer OTHER ==
[~2019-06-08] MED LIST changes: -DULO1CAP3 PO; +DULO1CAP6 PO
[2019-06-08 14:16] LABS: HEMOGLOBIN A1c 6.7 %
== END ==
LOC: M SFHCLERA 09:01
PROVIDERS: ATTEND Family Medicine
DX: E11.9 Type 2 diabetes mellitus without complications (principal)

== ENCOUNTER → 2019-06-17 | Outpatient (CLI) | payer OTHER ==
--- NOTE | 2019-06-17 10:56 | REP ---
BILATERAL LOWER EXTREMITY DUPLEX DOPPLER VENOUS ULTRASOUND WITH EVALUATION FOR VENOUS REFLUX: Real-time compression and duplex Doppler interrogation of bilateral lower extremity deep venous systems is performed. Bilaterally, common femoral, superficial femoral, and popliteal veins are fully compressible with transducer pressure and demonstrate normal spontaneous and phasic flow without evidence of deep venous thrombosis. Evaluation for venous reflux on the right demonstrates minimal reflux on the common femoral vein. There is an anterior accessory greater saphenous vein present without reflux. There is no reflux in any portion of the greater saphenous vein, which measures 6 mm at the saphenofemoral junction, 4 mm at the mid thigh, and 3 mm at the knee. There is no reflux on the superficial femoral or popliteal veins, nor in the lesser saphenous vein which measures 3 mm. Evaluation for venous reflux on the left demonstrates minimal reflux in the common femoral vein. There is an anterior accessory greater saphenous vein present without reflux. There is no reflux in any portion of the greater saphenous vein, which measures 6 mm at the saphenofemoral junction and 3 mm at the mid thigh and knee. There is minimal reflux in the proximal superficial femoral vein with no reflux in the more distal superficial femoral vein or popliteal vein. There is no reflux in the lesser saphenous which measures 2 mm. Electronically Signed by Venkat Acosta MD 06/19/2019 12:56 P
== END ==
LOC: M RAD 08:37
PROVIDERS: ATTEND Family Medicine
DX: R22.43 Localized swelling, mass and lump, lower limb, bilateral (principal)

== ENCOUNTER → 2019-06-17 | Outpatient (REF) | payer OTHER ==
[~2019-06-17] MED LIST changes: +FLOM0.4C39 PO
[2019-06-17 13:18] LABS: APPEARANCE, URINE CLEAR (CLEAR); BACTERIA, URINE AUTO NEGATIVE (NEGATIVE); BILIRUBIN, URINE AUTO NEGATIVE (NEGATIVE); BLOOD, URINE BLOOD NEGATIVE (NEGATIVE); COLOR, URINE YELLOW (YELLOW); GLUCOSE, URINE (UA) AUTO NEGATIVE (NEGATIVE); KETONE, URINE AUTO NEGATIVE (NEGATIVE); LEUKOCYTE ESTERASE, URINE AUTO NEGATIVE (NEGATIVE); NITRITE, URINE AUTO NEGATIVE (NEGATIVE); PROTEIN, URINE AUTO NEGATIVE (NEGATIVE); RBC, URINE AUTO 1 /HPF (0-3); SPECIFIC GRAVITY URINE AUTO 1.025 (1.002-1.035); SQUAMOUS EPITHELIAL CELL UR AU 0 /HPF (0-6); UROBILINOGEN, URINE AUTO 0.2 mg/dL (0.0-2.0); WBC, URINE AUTO 1 /HPF (0-3)
[2019-06-17 13:29] LABS: BASO % 0.6 % (0.0-1.0); EOS # 0.2 10^3/uL (0.0-0.50); HEMATOCRIT 43.3 % (42.0-52.0); HEMOGLOBIN 13.8 g/dl (13.5-17.5); LYMPH % 32.1 % (24.0-44.0); MEAN CORPUSCULAR HEMOGLOBIN 29.6 pg (27.0-33.0); MEAN CORPUSCULAR HGB CONC 31.9 g/dl (32.0-36.5); MEAN CORPUSCULAR VOLUME 92.9 fl (80.0-96.0); MONO # 0.5 10^3/uL (0.0-0.8); MONO % 8.1 % (0.0-5.0); NEUTROPHILS # 3.5 10^3/uL (1.8-7.7); NEUTROPHILS % 55.6 % (36.0-66.0); PLATELET COUNT, AUTOMATED 213 10^3/uL (150-450); RED BLOOD COUNT 4.66 10^6/uL (4.30-6.10); WHITE BLOOD COUNT 6.3 10^3/uL (4.0-10.0)
[2019-06-17 13:37] LABS: BLOOD UREA NITROGEN 19 MG/DL (7-18); CALCIUM LEVEL 9.1 MG/DL (8.5-10.1); CARBON DIOXIDE LEVEL 27 MEQ/L (21-32); CHLORIDE LEVEL 106 MEQ/L (98-107); CREATININE FOR GFR 1.12 MG/DL (0.70-1.30); GLOMERULAR FILTRATION RATE > 60.0 (>56); GLUCOSE, FASTING 117 MG/DL (70-100); POTASSIUM SERUM 4.6 MEQ/L (3.5-5.1); SODIUM LEVEL 141 MEQ/L (136-145)
== END ==
LOC: M SFHCLERA 07:33
PROVIDERS: ATTEND Family Medicine
DX: Z01.818 Encounter for other preprocedural examination (principal); M79.89 Other specified soft tissue disorders

== ENCOUNTER → 2019-07-21 | Outpatient (REF) | payer OTHER ==
[~2019-07-21] MED LIST changes: -FLOM0.4C39 PO
[2019-07-21 20:16] LABS: BASO % 0.3 % (0.0-1.0); EOS # 0.2 10^3/uL (0.0-0.50); EOS % 3.3 % (0.0-3.0); HEMATOCRIT 42.4 % (42.0-52.0); HEMOGLOBIN 13.3 g/dl (13.5-17.5); LYMPH # 2.4 10^3/uL (1.5-4.5); LYMPH % 32.7 % (24.0-44.0); MEAN CORPUSCULAR HEMOGLOBIN 28.8 pg (27.0-33.0); MEAN CORPUSCULAR HGB CONC 31.4 g/dl (32.0-36.5); MEAN CORPUSCULAR VOLUME 91.8 fl (80.0-96.0); MONO # 0.6 10^3/uL (0.0-0.8); MONO % 8.2 % (0.0-5.0); NEUTROPHILS % 54.8 % (36.0-66.0); PLATELET COUNT, AUTOMATED 218 10^3/uL (150-450); RED BLOOD COUNT 4.62 10^6/uL (4.30-6.10); WHITE BLOOD COUNT 7.3 10^3/uL (4.0-10.0)
[2019-07-21 20:18] LABS: BLOOD UREA NITROGEN 13 MG/DL (7-18); CALCIUM LEVEL 8.9 MG/DL (8.5-10.1); CARBON DIOXIDE LEVEL 29 MEQ/L (21-32); CHLORIDE LEVEL 104 MEQ/L (98-107); CREATININE FOR GFR 1.16 MG/DL (0.70-1.30); GLOMERULAR FILTRATION RATE > 60.0 (>56); GLUCOSE, FASTING 184 MG/DL (70-100); POTASSIUM SERUM 4.4 MEQ/L (3.5-5.1); SODIUM LEVEL 139 MEQ/L (136-145)
== END ==
LOC: M SFHCLERA 13:44
PROVIDERS: ATTEND Family Medicine
DX: Z01.818 Encounter for other preprocedural examination (principal)

== ENCOUNTER → 2019-09-08 | Outpatient (REF) | payer OTHER ==
[~2019-09-08] MED LIST changes: +FLOM0.4C39 PO
[2019-09-08 13:31] LABS: HEMOGLOBIN A1c 6.6 %
== END ==
LOC: M SFHCLERA 08:34
PROVIDERS: ATTEND Family Medicine
DX: E11.9 Type 2 diabetes mellitus without complications (principal)

== ENCOUNTER → 2019-10-11 | Outpatient (CLI) | payer OTHER ==
[~2019-10-11] MED LIST changes: -FLOM0.4C39 PO
--- NOTE | 2019-10-12 09:44 | REP ---
Left ankle four views: There is significant soft tissue edema laterally. There is an accessory ossicle versus an avulsion at the tip of the fibula. No other fracture is identified. The mortise is symmetric. Mineralization is normal. There is a large calcaneal plantar spur and a tiny calcaneal Achilles spur. Impression: Lateral soft tissue edema. Accessory ossicle versus an avulsion at the tip of the fibula. Electronically Signed by Venkat Freeman MD 10/11/2019 01:38 P
== END ==
LOC: M LRY 12:44
PROVIDERS: ATTEND Physician Assistant
DX: S99.912A Unspecified injury of left ankle, initial encounter (principal); M79.89 Other specified soft tissue disorders; X58.XXXA Exposure to other specified factors, initial encounter; Y92.9 Unspecified place or not applicable

== ENCOUNTER 2019-11-19 15:51 | Emergency (ER) | payer OTHER ==
[~2019-11-19] VITALS: Ht 167.6 cm; Wt 91.7 kg
[2019-11-19] MEDS ORDERED: NS 1,000 ML IV ONE ×2 (17:45→18:45)
[2019-11-19 18:33] LABS: BASO % 0.3 % (0.0-1.0); EOS # 0.1 10^3/uL (0.0-0.5); EOS % 0.6 % (0.0-3.0); HEMATOCRIT 44.1 % (42.0-52.0); HEMOGLOBIN 14.1 g/dl (13.5-17.5); LYMPH # 2.1 10^3/uL (1.5-5.0); LYMPH % 18.7 % (24.0-44.0); MEAN CORPUSCULAR HEMOGLOBIN 28.5 pg (27.0-33.0); MEAN CORPUSCULAR VOLUME 89.3 fl (80.0-96.0); MONO % 8.4 % (0.0-5.0); NEUTROPHILS # 8.2 10^3/uL (1.5-8.5); NEUTROPHILS % 71.4 % (36.0-66.0); PLATELET COUNT, AUTOMATED 209 10^3/uL (150-450); RED BLOOD COUNT 4.94 10^6/uL (4.30-6.10); WHITE BLOOD COUNT 11.5 10^3/uL (4.0-10.0)
[2019-11-19] MEDS ORDERED: ISOVUE-370 76% 100ML VIAL (Q9967) As Ordered ONE (18:45)
[2019-11-19 18:57] LABS: ALBUMIN 3.7 GM/DL (3.2-5.2); BILIRUBIN,DIRECT 0.3 MG/DL (0.0-0.2); BILIRUBIN,TOTAL 1.5 MG/DL (0.2-1.0); TOTAL PROTEIN 7.2 GM/DL (6.4-8.2)
--- NOTE | 2019-11-19 20:10 | REPVR ---
PROCEDURE INFORMATION: Exam: CT Abdomen And Pelvis With Contrast Exam date and time: 11/19/2019 6:50 PM Age: 54 years old Clinical indication: Abdominal pain; Localized; Left lower quadrant (llq); Additional info: Llq pain radiating to L flank TECHNIQUE: Imaging protocol: Computed tomography of the abdomen and pelvis with intravenous contrast. Axial, coronal and sagittal reformatted images were created and reviewed. Radiation optimization: All CT scans at this facility use at least one of these dose optimization techniques: automated exposure control; mA and/or kV adjustment per patient size (includes targeted exams where dose is matched to clinical indication); or iterative reconstruction. Contrast material: ISOVUE 370; Contrast volume: 100 ml; Contrast route: IV; COMPARISON: CT ABD PELVIS W/O FOL BY WIT 06/03/2013 10:19 AM FINDINGS: Lungs: Mild linear stranding and groundglass at the lung bases, likely due to atelectasis and/or scarring. Mediastinum: Small hiatal hernia. Liver: Mild hepatomegaly. Diffuse hepatic steatosis. Gallbladder and bile ducts: No radiodense gallstones. No biliary ductal dilatation. Pancreas: Unremarkable. Spleen: 11 mm low density lesion in the spleen, likely a cyst or hemangioma. Adrenals: Unremarkable. Kidneys and ureters: Mild left-sided hydronephrosis and perinephric stranding, secondary to a 5 mm calculus in the region of the UPJ (axial image 65 and coronal image 60). Nonobstructing bilateral renal calculi. Stomach and bowel: Scattered colonic diverticula without evidence of diverticulitis. No obstruction. No bowel wall thickening. No pneumatosis. Appendix: Normal. Intraperitoneal space: No free fluid. No organized fluid collection. No free air. Vasculature: Mild atherosclerotic disease. No aneurysm or dissection. Lymph nodes: No pathologically enlarged lymph nodes. Bladder: Unremarkable. Reproductive: Unremarkable. Bones/joints: No acute osseous abnormality. Osteopenia. Mild degenerative changes. Soft tissues: Small, fat-containing umbilical hernia. IMPRESSION: 1. Mild left-sided hydronephrosis and perinephric stranding, secondary to a 5 mm calculus in the region of the UPJ. 2. Additional findings, as above. Electronically signed by: Angel Isidro On 11/19/2019 20:10:09 PM
[2019-11-19] MEDS ORDERED: FLOM0.4C39 PO (20:49)
[2019-11-19 21:07] VITALS: BP 131/69
== END 2019-11-19 21:08 | disposition home or self-care (01) ==
LOC: M ED 15:51
DX: N20.0 Calculus of kidney (principal); I25.10 Atherosclerotic heart disease of native coronary artery without angina pectoris; E11.9 Type 2 diabetes mellitus without complications; I10 Essential (primary) hypertension; K80.20 Calculus of gallbladder without cholecystitis without obstruction; Z79.84 Long term (current) use of oral hypoglycemic drugs; Z79.899 Other long term (current) drug therapy; Z88.0 Allergy status to penicillin
CPT/HCPCS: 74177; 80047; 80076; 81001; 83605; 83690; 85025; 99284; Q9967

== ENCOUNTER → 2019-11-26 | Outpatient (CLI) | payer OTHER ==
[~2019-11-26] MED LIST changes: +FLOM0.4C39 PO
--- NOTE | 2019-11-26 16:57 | REP ---
Clinical: Kidney stone. Technique: Two supine views of the abdomen and pelvis. Findings: Left renal calculi measure up to approximately 7 mm. Further urinary tract calcifications may be obscured due to overlying bowel gas. Nonspecific bowel gas pattern without obstruction or perforation. Calcified seminal vesicles noted. Skeletal structures intact. Impression: Left renal calculi measuring up to 7 mm suspected. Electronically Signed by Korey Shay MD 11/26/2019 04:48 P
== END ==
LOC: M LRY 16:09
PROVIDERS: ATTEND Nurse Practitioner Family
DX: N20.0 Calculus of kidney (principal)

== ENCOUNTER → 2019-12-25 | Outpatient (CLI) | payer OTHER ==
--- NOTE | 2019-12-25 10:29 | REP ---
Supine abdomen two views for renal calculi: Comparison is 11/26/2019. There are too faintly visible calculi projected over the left kidney, one measuring 13 mm and the other measuring 7 mm, similar to the prior study. No other renal or ureteral calculi are identified. There is degenerative calcification of of the seminal vesicles bilaterally, unchanged. Impression: Left renal calculi as described. Electronically Signed by Venkat Freeman MD 12/25/2019 10:20 A
== END ==
LOC: M LRY 09:43
PROVIDERS: ATTEND Nurse Practitioner Family
DX: N20.0 Calculus of kidney (principal)

== ENCOUNTER → 2020-01-12 | Outpatient (REF) | payer OTHER ==
[~2020-01-12] MED LIST changes: +ALLE1TAB23 PO
[2020-01-12 16:45] LABS: APPEARANCE, URINE CLEAR (CLEAR); BACTERIA, URINE AUTO NEGATIVE (NEGATIVE); BILIRUBIN, URINE AUTO NEGATIVE (NEGATIVE); BLOOD, URINE BLOOD NEGATIVE (NEGATIVE); COLOR, URINE STRAW (YELLOW); GLUCOSE, URINE (UA) AUTO NEGATIVE (NEGATIVE); KETONE, URINE AUTO NEGATIVE (NEGATIVE); LEUKOCYTE ESTERASE, URINE AUTO NEGATIVE (NEGATIVE); NITRITE, URINE AUTO NEGATIVE (NEGATIVE); PROTEIN, URINE AUTO NEGATIVE (NEGATIVE); RBC, URINE AUTO 0 /HPF (0-3); SPECIFIC GRAVITY URINE AUTO 1.008 (1.002-1.035); SQUAMOUS EPITHELIAL CELL UR AU 0 /HPF (0-6); UROBILINOGEN, URINE AUTO 0.2 mg/dL (0.0-2.0); WBC, URINE AUTO 2 /HPF (0-3)
[2020-01-12 16:46] LABS: HEMATOCRIT 41.8 % (42.0-52.0); HEMOGLOBIN 13.4 g/dl (13.5-17.5); MEAN CORPUSCULAR HEMOGLOBIN 28.6 pg (27.0-33.0); MEAN CORPUSCULAR HGB CONC 32.1 g/dl (32.0-36.5); MEAN CORPUSCULAR VOLUME 89.1 fl (80.0-96.0); PLATELET COUNT, AUTOMATED 210 10^3/uL (150-450); RED BLOOD COUNT 4.69 10^6/uL (4.30-6.10)
[2020-01-12 16:55] LABS: BLOOD UREA NITROGEN 9 MG/DL (7-18); CALCIUM LEVEL 9.1 MG/DL (8.5-10.1); CARBON DIOXIDE LEVEL 29 MEQ/L (21-32); CHLORIDE LEVEL 102 MEQ/L (98-107); CREATININE FOR GFR 1.09 MG/DL (0.70-1.30); GLOMERULAR FILTRATION RATE > 60.0 (>56); GLUCOSE, FASTING 116 MG/DL (70-100); INR 1.03; PROTHROMBIN TIME 13.2 SECONDS (11.8-14.0); SODIUM LEVEL 138 MEQ/L (136-145)
== END ==
LOC: M LABSMT 13:23
PROVIDERS: ATTEND Nurse Practitioner Family
DX: Z01.818 Encounter for other preprocedural examination (principal); N20.0 Calculus of kidney

== ENCOUNTER → 2020-01-12 | Outpatient (CLI) | payer OTHER ==
--- NOTE | 2020-01-12 14:31 | REP ---
Clinical: Preoperative assessment. Kidney stone . Comparison: 04/06/2019 . Technique: PA and lateral. Findings: The mediastinum and cardiac silhouette are normal. The lung mayorga are clear and without acute consolidation, effusion, or pneumothorax. The skeletal structures are intact and normal. Impression: 1. No acute cardiopulmonary process. Electronically Signed by Korey Shay MD 01/12/2020 02:22 P
== END ==
LOC: M LRY 13:24
PROVIDERS: ATTEND Nurse Practitioner Family
DX: Z01.818 Encounter for other preprocedural examination (principal); N20.0 Calculus of kidney

== ENCOUNTER 2020-01-22 06:05 | Day surgery (SDC) | payer OTHER ==
[~2020-01-22] VITALS: Ht 167.6 cm; Wt 93.4 kg
[~2020-01-22 06:05] MED LIST changes: +LR 1,000 ML IV ONE; +ceFAZolin SOD 2 GM in IV 1 EA IV ONE
[2020-01-22] MEDS ORDERED: CONRAY-60 60% 50ML VIAL (Q9961) As Ordered ONE (07:16)
[2020-01-22] MEDS ORDERED: propofoL 200 MG/20 ML VIAL As Ordered ONE (07:18)
[2020-01-22] MEDS ORDERED: LIDOCAINE 2% INJ 100 MG/5 ML SDV (FOR ANES.) As Ordered ONE (07:18)
[2020-01-22] MEDS ORDERED: fentaNYL 100 MCG/2 ML INJECTION (J3010) As Ordered ONE (07:19)
[2020-01-22] MEDS ORDERED: MIDAZOLAM INJ 2 MG/2 ML VIAL (J2250) As Ordered ONE (07:19)
[2020-01-22] MEDS ORDERED: dexameTHASONE 4 MG/ML 1ML VIAL (J1100) As Ordered ONE (07:55)
[2020-01-22] MEDS ORDERED: ONDANSETRON 4MG/2ML VIAL (J2405) As Ordered ONE (08:08)
[2020-01-22] MEDS ORDERED: PHENYLephrine HCL 500 MCG/5 ML (100MCG/ML) SYRINGE (J2370) As Ordered ONE (08:18)
[2020-01-22] MEDS ORDERED: KETOROLAC 30 MG/ML VIAL (J1885) IV PRN ×2 (09:15→11:00)
[2020-01-22] MEDS ORDERED: LR 1,000 ML IV SCH ×2 (09:15→11:00)
[2020-01-22] MEDS ORDERED: fentaNYL 100 MCG/2 ML INJECTION (J3010) IV PRN ×2 (09:15→11:00)
[2020-01-22] MEDS ORDERED: PERCOCET 5MG/325MG TAB PO PRN ×3 (09:15→11:00)
[2020-01-22] MEDS ORDERED: METOCLOPRAMIDE INJ 10MG/2ML VIAL (J2765) IV PRN ×2 (09:15→11:00)
[2020-01-22] MEDS ORDERED: ONDANSETRON 4MG/2ML VIAL (J2405) IV PRN ×2 (09:15→11:00)
[2020-01-22 11:42] VITALS: BP 135/82
--- NOTE | 2020-01-22 14:51 | REP ---
Clinical: Retrograde pyelogram. Technique: Multiple intraoperative fluoroscopic images using portable C-arm technique. Findings: Images demonstrate mild left hydronephrosis with satisfactory left ureteral stent placement. Total fluoroscopic time 10 seconds (9.67 mGy). Impression: Satisfactory left ureteral stent placement. Electronically Signed by Korey Shay MD 01/22/2020 08:53 A
--- NOTE | 2020-01-25 10:08 | RO ---
DATE OF PROCEDURE: 01/22/2020 PREPROCEDURE DIAGNOSIS: Left kidney stones. POSTPROCEDURE DIAGNOSIS: Left kidney stones. PROCEDURE: Cystoscopy, left ureteroscopy with laser lithotripsy and basket extraction of stones, left retrograde pyelogram with intraoperative images, left ureteral stent placement. SURGEON: Dr. Issa Ardon. SHIPBUILDING DRAFTSPERSON: None. ANESTHESIA: General. OPERATIVE INDICATIONS: This is a 54-year-old male who was found to have an approximately 8 mm obstructing proximal left ureteral stone as well as an 8 mm stone inside the kidney. He was brought to the operating room today for treatment. DESCRIPTION OF PROCEDURE: The patient was brought to the operating room and general anesthesia was induced. Prophylactic antibiotics were infused. He was then placed in the dorsal lithotomy position and prepped and draped in the usual sterile fashion. A rigid cystoscope was then inserted into the urethral meatus and advanced into the bladder. Once inside the bladder a guidewire was advanced in the left collecting system. I then advanced the ureteroscopy sheath up the left collecting system. I went up the left collecting system with a flexible ureteroscope and within the proximal ureter, the 8 mm stone was seen. The stone was then fragmented into smaller pieces using a 272 micron laser fiber. All of the fragments were then removed using a basket. Next, I examined the entire kidney and within the lower pole azeb, another 8 mm stone was seen. The stone was then repositioned to the upper pole azeb using a laser. The stone was then fragmented into smaller pieces using the laser. All the fragments were then removed using the basket. I them examined the remainder of the kidney and no additional stones were seen. Once done, a retrograde pyelogram was performed and was notable for moderate left hydronephrosis with no extravasation. I the withdrew the ureteroscope along with the access sheath and no additional stones were seen within the ureter. I then utilized the previously placed wire to advance a 6-Cypriot x 22-32 cm JJ ureteral stent into the left collecting system. The wire was removed and there were adequate curls of the stent in the left renal pelvis and in the bladder. The bladder was then emptied of all fluids and this marked the conclusion of the procedure. The patient was taken out of the dorsal lithotomy position, awakened from anesthesia and transferred to the recovery room in stable condition. ESTIMATED BLOOD LOSS: 5 mL. COMPLICATIONS: None. SPECIMENS: Kidney stone fragments. PLAN: The patient will followup in the clinic in a few weeks for stent removal. ANA
== END 2020-01-22 11:55 | disposition home or self-care (01) ==
LOC: M SDC 06:05
PROVIDERS: ATTEND Urology
DX: N20.0 Calculus of kidney (principal); I10 Essential (primary) hypertension; E11.9 Type 2 diabetes mellitus without complications; E78.5 Hyperlipidemia, unspecified; G47.33 Obstructive sleep apnea (adult) (pediatric); F32.9 Major depressive disorder, single episode, unspecified; F41.9 Anxiety disorder, unspecified; M54.9 Dorsalgia, unspecified; I42.1 Obstructive hypertrophic cardiomyopathy; Z79.899 Other long term (current) drug therapy; Z79.84 Long term (current) use of oral hypoglycemic drugs; Z88.1 Allergy status to other antibiotic agents; Z88.0 Allergy status to penicillin
CPT/HCPCS: 52356; 74420; 82365; 88300; C1769; C1894; C2617; J0690; J1100; J2250; J2370; J2405; J3010; Q9961

== ENCOUNTER → 2020-02-26 | Outpatient (REF) | payer OTHER ==
[~2020-02-26] MED LIST changes: -LR 1,000 ML IV ONE; -ceFAZolin SOD 2 GM in IV 1 EA IV ONE
[2020-02-26 17:58] LABS: APPEARANCE, URINE CLEAR (CLEAR); BACTERIA, URINE AUTO NEGATIVE (NEGATIVE); BILIRUBIN, URINE AUTO NEGATIVE (NEGATIVE); BLOOD, URINE BLOOD NEGATIVE (NEGATIVE); COLOR, URINE STRAW (YELLOW); GLUCOSE, URINE (UA) AUTO NEGATIVE (NEGATIVE); KETONE, URINE AUTO NEGATIVE (NEGATIVE); LEUKOCYTE ESTERASE, URINE AUTO NEGATIVE (NEGATIVE); MUCUS, URINE SMALL (NEGATIVE); NITRITE, URINE AUTO NEGATIVE (NEGATIVE); PROTEIN, URINE AUTO NEGATIVE (NEGATIVE); RBC, URINE AUTO 0 /HPF (0-3); SPECIFIC GRAVITY URINE AUTO 1.009 (1.002-1.035); SQUAMOUS EPITHELIAL CELL UR AU 0 /HPF (0-6); UROBILINOGEN, URINE AUTO 0.2 mg/dL (0.0-2.0); WBC, URINE AUTO 0 /HPF (0-3)
== END ==
LOC: M SMT 16:43
PROVIDERS: ATTEND Nurse Practitioner Women's Health
DX: N20.0 Calculus of kidney (principal)

== ENCOUNTER → 2020-03-02 | Outpatient (CLI) | payer OTHER ==
--- NOTE | 2020-03-02 16:04 | REP ---
CT abdomen and pelvis without IV or oral contrast: History: Kidney stone. Right flank pain. Comparison CT study November 19, 2019. CT findings: Preliminary digital sap consultant radiograph is unremarkable. Bowel gas pattern is normal. There appears to be vas deferens calcification in the pelvis. Axial CT images demonstrate that the lung bases are essentially clear with minimal fibrotic changes. There is moderate diffuse fatty infiltration of the liver. No focal liver mass lesion is apparent. The spleen is unremarkable. No adrenal abnormality is seen. There is no evidence of hydronephrosis on either side. No intrarenal calculus is seen. There is some vascular calcification in a normal caliber aorta. The gallbladder is unremarkable. There is an accessory splenule in the left upper quadrant. No abnormalities noted in the pancreas. There appears to be a descending duodenal diverticulum. There is diverticulosis of the ascending colon. Normal appendix is seen in the right lower quadrant. There is no CT evidence of diverticulitis. There is a small umbilical hernia transmitting abdominal fat. No other abdominal wall defect is seen. Urinary bladder is intact. There is some dystrophic calcifications in the prostate and vas deferens calcification is visible on axial CT images. Impression: Fatty infiltration of the liver. Right colonic diverticulosis. No urinary tract calculus or hydronephrosis seen. Normal appendix. Small umbilical hernia transmitting abdominal fat. Electronically Signed by Fredrick Arroyo MD 03/02/2020 04:32 P
== END ==
LOC: M RAD 15:27
PROVIDERS: ATTEND Nurse Practitioner Women's Health
DX: K76.0 Fatty (change of) liver, not elsewhere classified (principal); K57.32 Diverticulitis of large intestine without perforation or abscess without bleeding; K44.9 Diaphragmatic hernia without obstruction or gangrene; N20.0 Calculus of kidney; R10.9 Unspecified abdominal pain

== ENCOUNTER → 2020-03-09 | Outpatient (REF) | payer OTHER ==
[2020-03-09 11:21] LABS: BASO % 0.4 % (0.0-1.0); EOS # 0.2 10^3/uL (0.0-0.5); EOS % 2.3 % (0.0-3.0); HEMATOCRIT 44.4 % (42.0-52.0); HEMOGLOBIN 13.8 g/dl (13.5-17.5); LYMPH # 2.3 10^3/uL (1.5-5.0); LYMPH % 29.5 % (24.0-44.0); MEAN CORPUSCULAR HEMOGLOBIN 28.4 pg (27.0-33.0); MEAN CORPUSCULAR HGB CONC 31.1 g/dl (32.0-36.5); MEAN CORPUSCULAR VOLUME 91.4 fl (80.0-96.0); MONO # 0.5 10^3/uL (0.0-0.8); MONO % 6.9 % (0.0-5.0); NEUTROPHILS # 4.6 10^3/uL (1.5-8.5); PLATELET COUNT, AUTOMATED 264 10^3/uL (150-450); RED BLOOD COUNT 4.86 10^6/uL (4.30-6.10); WHITE BLOOD COUNT 7.7 10^3/uL (4.0-10.0)
[2020-03-09 11:26] LABS: ALBUMIN 3.5 GM/DL (3.2-5.2); ALT/SGPT 28 U/L (12-78); BILIRUBIN,TOTAL 0.9 MG/DL (0.2-1.0); BLOOD UREA NITROGEN 16 MG/DL (7-18); CALCIUM LEVEL 8.6 MG/DL (8.5-10.1); CARBON DIOXIDE LEVEL 28 MEQ/L (21-32); CHLORIDE LEVEL 105 MEQ/L (98-107); CHOLESTEROL LEVEL 140 MG/DL (<200); CHOLESTEROL RISK RATIO 2.545 (<5); CREATININE FOR GFR 1.04 MG/DL (0.70-1.30); GLOMERULAR FILTRATION RATE > 60.0 (>56); GLUCOSE, FASTING 133 MG/DL (70-100); HDL CHOLESTEROL 55 MG/DL (>40); LDL CHOLESTEROL 60 MG/DL (<100); NON-HDL-C 85 MG/DL; POTASSIUM SERUM 4.5 MEQ/L (3.5-5.1); SODIUM LEVEL 138 MEQ/L (136-145); TOTAL PROTEIN 6.8 GM/DL (6.4-8.2); TRIGLYCERIDES LEVEL 124 MG/DL (<150); VITAMIN B12 LEVEL 165 PG/ML (247-911)
[2020-03-09 11:41] LABS: HEMOGLOBIN A1c 7.4 %
[2020-03-09 11:48] LABS: MALB URINE SIEMENS 15.9 MG/L; MAU/CREAT RATIO 9.6 MCG/MG (0.0-30.0)
== END ==
LOC: M SFHCLERA 08:12
PROVIDERS: ATTEND Family Medicine
DX: E11.9 Type 2 diabetes mellitus without complications (principal); E78.2 Mixed hyperlipidemia; F41.9 Anxiety disorder, unspecified; K76.0 Fatty (change of) liver, not elsewhere classified

== ENCOUNTER → 2020-08-27 | Outpatient (CLI) | payer OTHER ==
[2020-08-27 18:42] LABS: BASO % 0.5 % (0.0-1.0); EOS # 0.3 10^3/uL (0.0-0.5); EOS % 3.5 % (0.0-3.0); HEMATOCRIT 46.9 % (42.0-52.0); HEMOGLOBIN 14.4 g/dl (13.5-17.5); LYMPH # 2.1 10^3/uL (1.5-5.0); LYMPH % 27.1 % (24.0-44.0); MEAN CORPUSCULAR HEMOGLOBIN 28.3 pg (27.0-33.0); MEAN CORPUSCULAR HGB CONC 30.7 g/dl (32.0-36.5); MEAN CORPUSCULAR VOLUME 92.3 fl (80.0-96.0); MONO # 0.5 10^3/uL (0.0-0.8); MONO % 6.9 % (0.0-5.0); NEUTROPHILS # 4.7 10^3/uL (1.5-8.5); NEUTROPHILS % 61.2 % (36.0-66.0); PLATELET COUNT, AUTOMATED 250 10^3/uL (150-450); RED BLOOD COUNT 5.08 10^6/uL (4.30-6.10); WHITE BLOOD COUNT 7.6 10^3/uL (4.0-10.0)
[2020-08-27 19:06] LABS: ALT/SGPT 27 U/L (12-78); BLOOD UREA NITROGEN 14 MG/DL (7-18); CALCIUM LEVEL 9.1 MG/DL (8.5-10.1); CARBON DIOXIDE LEVEL 27 MEQ/L (21-32); CHLORIDE LEVEL 105 MEQ/L (98-107); CHOLESTEROL LEVEL 137 MG/DL (<200); CHOLESTEROL RISK RATIO 2.978 (<5); CPK CREATINE PHOSPHOKINASE 86 U/L (39-308); CREATININE FOR GFR 1.13 MG/DL (0.70-1.30); GLOMERULAR FILTRATION RATE > 60.0 (>56); GLUCOSE, FASTING 143 MG/DL (70-100); HDL CHOLESTEROL 46 MG/DL (>40); LDL CHOLESTEROL 36 MG/DL (<100); NON-HDL-C 91 MG/DL; POTASSIUM SERUM 4.5 MEQ/L (3.5-5.1); SODIUM LEVEL 139 MEQ/L (136-145); TRIGLYCERIDES LEVEL 276 MG/DL (<150)
== END ==
LOC: M WUC 08:39
PROVIDERS: ATTEND Internal Medicine Cardiovascular Disease
DX: I42.1 Obstructive hypertrophic cardiomyopathy (principal); I10 Essential (primary) hypertension; Z71.3 Dietary counseling and surveillance

== ENCOUNTER → 2020-09-30 | Outpatient (CLI) | payer OTHER ==
--- NOTE | 2020-09-30 17:02 | REP ---
INDICATION: HAND PAIN. COMPARISON: None. TECHNIQUE: Four views FINDINGS: The joint spaces are symmetric and relatively well maintained. Seen only on the external oblique view there is a tiny flake like ossific density seen lateral to the base of the middle phalanx of the 2nd digit. There is evidence of an old healed boxer's fracture. IMPRESSION: 1. Possible age undetermined tiny chip fracture involving the base of the middle phalanx of the 2nd digit <Electronically signed by Junior Andres > 09/30/20 [id number]
[2020-09-30 17:17] LABS: BASO % 0.5 % (0.0-1.0); EOS # 0.2 10^3/uL (0.0-0.5); EOS % 3.2 % (0.0-3.0); HEMATOCRIT 42.3 % (42.0-52.0); HEMOGLOBIN 13.4 g/dl (13.5-17.5); LYMPH # 1.9 10^3/uL (1.5-5.0); LYMPH % 29.7 % (24.0-44.0); MEAN CORPUSCULAR HEMOGLOBIN 29.1 pg (27.0-33.0); MEAN CORPUSCULAR HGB CONC 31.7 g/dl (32.0-36.5); MONO # 0.5 10^3/uL (0.0-0.8); MONO % 7.8 % (0.0-5.0); NEUTROPHILS # 3.7 10^3/uL (1.5-8.5); PLATELET COUNT, AUTOMATED 220 10^3/uL (150-450); WHITE BLOOD COUNT 6.3 10^3/uL (4.0-10.0)
[2020-09-30 17:19] LABS: APPEARANCE, URINE CLEAR (CLEAR); BACTERIA, URINE AUTO NEGATIVE (NEGATIVE); BILIRUBIN, URINE AUTO NEGATIVE (NEGATIVE); BLOOD, URINE BLOOD NEGATIVE (NEGATIVE); COLOR, URINE YELLOW (YELLOW); GLUCOSE, URINE (UA) AUTO 2+ mg/dL (NEGATIVE); KETONE, URINE AUTO TRACE mg/dL (NEGATIVE); LEUKOCYTE ESTERASE, URINE AUTO NEGATIVE (NEGATIVE); NITRITE, URINE AUTO NEGATIVE (NEGATIVE); PROTEIN, URINE AUTO NEGATIVE (NEGATIVE); RBC, URINE AUTO 0 /HPF (0-3); SPECIFIC GRAVITY URINE AUTO 1.016 (1.002-1.035); SQUAMOUS EPITHELIAL CELL UR AU 0 /HPF (0-6); UROBILINOGEN, URINE AUTO 0.2 mg/dL (0.0-2.0); WBC, URINE AUTO 0 /HPF (0-3)
[2020-09-30 17:44] LABS: BLOOD UREA NITROGEN 13 MG/DL (7-18); CALCIUM LEVEL 8.7 MG/DL (8.5-10.1); CARBON DIOXIDE LEVEL 28 MEQ/L (21-32); CHLORIDE LEVEL 105 MEQ/L (98-107); CREATININE FOR GFR 1.23 MG/DL (0.70-1.30); GLOMERULAR FILTRATION RATE > 60.0 (>56); GLUCOSE, FASTING 204 MG/DL (70-100); POTASSIUM SERUM 4.1 MEQ/L (3.5-5.1); SODIUM LEVEL 140 MEQ/L (136-145)
[2020-09-30 18:01] LABS: CREATININE, URINE 98.4 MG/DL; MALB URINE SIEMENS < 5.0 MG/L
[2020-09-30 18:19] LABS: HEMOGLOBIN A1c 6.8 %
== END ==
LOC: M WUC 14:55
PROVIDERS: ATTEND Family Medicine
DX: R39.15 Urgency of urination (principal); E11.9 Type 2 diabetes mellitus without complications; M79.641 Pain in right hand

== ENCOUNTER → 2020-10-26 | Outpatient (CLI) | payer OTHER ==
--- NOTE | 2020-10-26 16:01 | REP ---
INDICATION: URINARY URGENCY--PRE AND POST VOID. COMPARISON: None. TECHNIQUE: Real-time sonographic evaluation of urinary bladder performed. FINDINGS: The bladder measures 10.5 x 7.5 x 6.5 cm. Volume is 334 cc. Postvoid residual is 13 cc, 4% of the regional volume. No bladder mass or calculus is visualized. There are bilateral ureteral jets in the urinary bladder with Doppler color evaluation. IMPRESSION: Unremarkable bladder ultrasound. Postvoid residual 4%. <Electronically signed by Venkat Acosta > 10/26/20 1600
== END ==
LOC: M RAD 15:19
PROVIDERS: ATTEND Family Medicine
DX: R39.15 Urgency of urination (principal)

== ENCOUNTER → 2021-01-30 | Outpatient (REF) | payer OTHER ==
[2021-01-30 19:20] LABS: APPEARANCE, URINE CLEAR (CLEAR); BACTERIA, URINE AUTO NEGATIVE (NEGATIVE); BILIRUBIN, URINE AUTO NEGATIVE (NEGATIVE); BLOOD, URINE BLOOD NEGATIVE (NEGATIVE); COLOR, URINE YELLOW (YELLOW); GLUCOSE, URINE (UA) AUTO NEGATIVE (NEGATIVE); KETONE, URINE AUTO TRACE mg/dL (NEGATIVE); LEUKOCYTE ESTERASE, URINE AUTO NEGATIVE (NEGATIVE); MUCUS, URINE SMALL (NEGATIVE); NITRITE, URINE AUTO NEGATIVE (NEGATIVE); PROTEIN, URINE AUTO NEGATIVE (NEGATIVE); RBC, URINE AUTO 0 /HPF (0-3); SPECIFIC GRAVITY URINE AUTO 1.025 (1.002-1.035); SQUAMOUS EPITHELIAL CELL UR AU 0 /HPF (0-6); UROBILINOGEN, URINE AUTO 0.2 mg/dL (0.0-2.0); WBC, URINE AUTO 0 /HPF (0-3)
== END ==
LOC: M SMT 16:56
PROVIDERS: ATTEND Nurse Practitioner Family
DX: R39.15 Urgency of urination (principal)

== ENCOUNTER → 2021-03-26 | Outpatient (CLI) | payer OTHER ==
[2021-03-26 11:37] LABS: ALT/SGPT 30 U/L (12-78); BLOOD UREA NITROGEN 16 MG/DL (7-18); CALCIUM LEVEL 9.6 MG/DL (8.5-10.1); CARBON DIOXIDE LEVEL 29 MEQ/L (21-32); CHLORIDE LEVEL 103 MEQ/L (98-107); CHOLESTEROL LEVEL 138 MG/DL (<200); CHOLESTEROL RISK RATIO 2.816 (<5); CPK CREATINE PHOSPHOKINASE 90 U/L (39-308); CREATININE FOR GFR 1.03 MG/DL (0.70-1.30); GLOMERULAR FILTRATION RATE > 60.0 (>56); GLUCOSE, FASTING 131 MG/DL (70-100); HDL CHOLESTEROL 49 MG/DL (>40); LDL CHOLESTEROL 46 MG/DL (<100); NON-HDL-C 89 MG/DL; POTASSIUM SERUM 4.6 MEQ/L (3.5-5.1); SODIUM LEVEL 138 MEQ/L (136-145); TRIGLYCERIDES LEVEL 214 MG/DL (<150)
== END ==
LOC: M LAB 10:47
PROVIDERS: ATTEND Nurse Practitioner
DX: I10 Essential (primary) hypertension (principal)

== ENCOUNTER → 2021-03-26 | Outpatient (CLI) | payer OTHER ==
[2021-03-26 11:38] LABS: BLOOD UREA NITROGEN 15 MG/DL (7-18); CALCIUM LEVEL 9.4 MG/DL (8.5-10.1); CARBON DIOXIDE LEVEL 28 MEQ/L (21-32); CHLORIDE LEVEL 104 MEQ/L (98-107); CHOLESTEROL LEVEL 135 MG/DL (<200); CHOLESTEROL RISK RATIO 2.812 (<5); CREATININE FOR GFR 0.97 MG/DL (0.70-1.30); GLOMERULAR FILTRATION RATE > 60.0 (>56); GLUCOSE, FASTING 130 MG/DL (70-100); HDL CHOLESTEROL 48 MG/DL (>40); LDL CHOLESTEROL 45 MG/DL (<100); NON-HDL-C 87 MG/DL; POTASSIUM SERUM 4.4 MEQ/L (3.5-5.1); SODIUM LEVEL 139 MEQ/L (136-145); TRIGLYCERIDES LEVEL 211 MG/DL (<150)
[2021-03-26 11:43] LABS: HEMOGLOBIN A1c 6.7 %
== END ==
LOC: M LAB 10:51
PROVIDERS: ATTEND Family Medicine
DX: E11.9 Type 2 diabetes mellitus without complications (principal); E78.2 Mixed hyperlipidemia

== ENCOUNTER 2021-06-01 19:39 | Emergency (ER) | payer OTHER ==
[~2021-06-01] VITALS: Ht 167.6 cm; Wt 94.7 kg
[2021-06-01] MEDS ORDERED: PRAV20TA2 PO (19:47)
[2021-06-01] MEDS ORDERED: DITR1TAB PO (19:47)
[2021-06-01 20:36] LABS: BASO % 0.5 % (0.0-1.0); EOS # 0.3 10^3/uL (0.0-0.5); EOS % 3.4 % (0.0-3.0); HEMATOCRIT 43.3 % (42.0-52.0); HEMOGLOBIN 13.5 g/dl (13.5-17.5); LYMPH # 2.7 10^3/uL (1.5-5.0); LYMPH % 34.9 % (24.0-44.0); MEAN CORPUSCULAR HEMOGLOBIN 28.5 pg (27.0-33.0); MEAN CORPUSCULAR HGB CONC 31.2 g/dl (32.0-36.5); MEAN CORPUSCULAR VOLUME 91.4 fl (80.0-96.0); MONO # 0.6 10^3/uL (0.0-0.8); MONO % 8.2 % (2.0-8.0); NEUTROPHILS % 52.1 % (36.0-66.0); PLATELET COUNT, AUTOMATED 228 10^3/uL (150-450); RED BLOOD COUNT 4.74 10^6/uL (4.30-6.10); WHITE BLOOD COUNT 7.6 10^3/uL (4.0-10.0)
[2021-06-01] MEDS ORDERED: NS 500 ML IV ONE (21:20)
[2021-06-01 21:49] LABS: AMPHETAMINES LEVEL URINE NEGATIVE (NEGATIVE); BARBITURATES URINE NEGATIVE (NEGATIVE); BENZODIAZEPINES URINE NEGATIVE (NEGATIVE); CANNABINOIDS URINE NEGATIVE (NEGATIVE); COCAINE METABOLITE URINE NEGATIVE (NEGATIVE); METHADONE URINE NEGATIVE (NEGATIVE); OPIATES URINE NEGATIVE (NEGATIVE); PHENCYCLIDINE URINE NEGATIVE (NEGATIVE)
--- NOTE | 2021-06-01 21:52 | REPVR ---
PROCEDURE INFORMATION: Exam: CT Head Without Contrast Exam date and time: 06/01/2021 8:25 PM Age: 55 years old Clinical indication: Syncope and collapse; Additional info: Syncope/unwitnessed TECHNIQUE: Imaging protocol: Computed tomography of the head without contrast. Radiation optimization: All CT scans at this facility use at least one of these dose optimization techniques: automated exposure control; mA and/or kV adjustment per patient size (includes targeted exams where dose is matched to clinical indication); or iterative reconstruction. COMPARISON: CT Head without contrast 08/03/2017 1:03 AM FINDINGS: Brain: 3.5 x 4.1 cm CSF density in the posterior fossa are representing an arachnoid cyst.The espinosa-white differentiation is maintained. No hemorrhage. No edema. Cerebral ventricles: No ventriculomegaly. Paranasal sinuses: Visualized sinuses are unremarkable. No fluid levels. Mastoid air cells: Visualized mastoid air cells are well aerated. Bones/joints: Evidence of the right prior mastoid surgery. Soft tissues: Unremarkable. IMPRESSION: No acute intracranial abnormality. Electronically signed by: Bobby Webb On 06/01/2021 21:51:38 PM
--- NOTE | 2021-06-01 22:12 | REP ---
INDICATION: Syncope/near-syncope COMPARISON: 01/12/2020 TECHNIQUE: Portable AP view of the chest FINDINGS: The mediastinum and cardiac silhouette are stable and within normal limits for portable technique. The lung mayorga are clear without acute consolidation, effusion, or pneumothorax. Skeletal structures are intact. IMPRESSION: No acute cardiopulmonary process appreciated. <Electronically signed by Korey Shay > 06/01/21 [id number]
[2021-06-01 22:17] LABS: ALT/SGPT 32 U/L (12-78); BILIRUBIN,DIRECT 0.1 MG/DL (0.0-0.2); BILIRUBIN,TOTAL 0.4 MG/DL (0.2-1.0); BLOOD UREA NITROGEN 20 MG/DL (7-18); CALCIUM LEVEL 8.7 MG/DL (8.5-10.1); CARBON DIOXIDE LEVEL 28 MEQ/L (21-32); CHLORIDE LEVEL 106 MEQ/L (98-107); CK-MB VALUE MASS 1.8 NG/ML (<3.6); CPK CREATINE PHOSPHOKINASE 103 U/L (39-308); CREATININE FOR GFR 1.28 MG/DL (0.70-1.30); ETHYL ALCOHOL (ETHANOL) < 0.003 % (0.000-0.010); FREE T4 0.88 NG/DL (0.76-1.46); GLOMERULAR FILTRATION RATE > 60.0 (>56); GLUCOSE, FASTING 134 MG/DL (70-100); MAGNESIUM LEVEL 1.5 MG/DL (1.8-2.4); MB/CK RELATIVE INDEX 1.75 (< OR =4); NT-PRO BNP 20 PG/ML (<125); POTASSIUM SERUM 4.5 MEQ/L (3.5-5.1); SODIUM LEVEL 139 MEQ/L (136-145); TOTAL PROTEIN 6.8 GM/DL (6.4-8.2); TROPONIN I < 0.02 NG/ML (< 0.10)
[2021-06-02 00:30] VITALS: BP 152/83
[2021-06-02 01:01] LABS: RSV AMPLIFICATION NEGATIVE (NEGATIVE)
--- NOTE | 2021-06-02 05:44 | ECGEPIP ---
- ED Test Date: 2021-06-01 Pat Name: HANNAH MORALES Department: Room: - Gender: Male Icing Mixer: KEVIN : 1965 Requested By: HECTOR Page Order Number: [id number] Reading MD: Pedro Spangler Measurements Intervals Guild Rate: 66 P: 44 DC: 162 QRS: 43 QRSD: 84 T: 55 QT: 410 QTc: 429 Interpretive Statements Normal sinus rhythm with sinus arrhythmia NSTTW ABNORMALITY(S) NO PRIORS FOR COMPARISON Electronically Signed on 06-02-2021 5:44:00 EDT by Pedro Spangler
== END 2021-06-02 00:54 | disposition short-term general hospital (02) ==
LOC: M ED 19:39
DX: R55 Syncope and collapse (principal); I42.2 Other hypertrophic cardiomyopathy; E11.9 Type 2 diabetes mellitus without complications; I10 Essential (primary) hypertension; E78.5 Hyperlipidemia, unspecified; G47.33 Obstructive sleep apnea (adult) (pediatric); M54.5 Low back pain; R06.02 Shortness of breath; Z79.84 Long term (current) use of oral hypoglycemic drugs; Z79.899 Other long term (current) drug therapy; Z88.0 Allergy status to penicillin

== ENCOUNTER → 2021-06-16 | Outpatient (CLI) | payer OTHER ==
[~2021-06-16] MED LIST changes: +DITR1TAB PO
--- NOTE | 2021-06-19 19:33 | SLEEPCENT ---
DATE: 06/16/2021 NOCTURNAL POLYSOMNOGRAPHY ORDERED BY: GRETCHEN Cobian Nocturnal polysomnography was performed for evaluation of sleep physiology in this patient with a history of excessive somnolence and nonrestorative sleep. Eight hours and 24 minutes of data were reviewed. There were 401.5 minutes of sleep identified. Sleep latency was prolonged at 64.5 minutes. REM latency was short at 53 minutes. Sleep architecture showed some fragmentation. There were five REM cycles. Overall sleep efficiency was 80.4%. The electrocardiogram showed a sinus rhythm with an average heart rate of 60 beats per minute. Rate ranged 50-80. EEG showed normal waveforms for wake and sleep. There were 150 respiratory events identified of 10 seconds in duration or greater for an apnea-hypopnea index of 22.4. The events were primarily obstructive, not exclusive to sleep stage. Arousals from respiratory events occurred 3.3 times per hour, and oxygen desaturations were seen into the low 80s. IMPRESSIONS: 1. Obstructive sleep apnea syndrome (G47.33). 2. Apnea-hypopnea index 22.4. RECOMMENDATION: The patient should be encouraged to return to the [facility] for pressure therapy. In the interim, alcohol and sedative avoidance should be practiced and caution exercised during the operation of motor vehicles. cc: MINDY KABA DO
== END ==
LOC: M SLEEP 20:00
PROVIDERS: ATTEND Physician Assistant
DX: G47.33 Obstructive sleep apnea (adult) (pediatric) (principal)

== ENCOUNTER → 2021-06-16 | Outpatient (CLI) | payer OTHER ==
[2021-06-16 18:02] LABS: ALT/SGPT 42 U/L (12-78); CHOLESTEROL LEVEL 156 MG/DL (<200); CHOLESTEROL RISK RATIO 3.804 (<5); CPK CREATINE PHOSPHOKINASE 59 U/L (39-308); HDL CHOLESTEROL 41 MG/DL (>40); NON-HDL-C 115 MG/DL; TRIGLYCERIDES LEVEL 428 MG/DL (<150)
[2021-06-21 08:10] LABS: LDL DIRECT 67 mg/dL (0-99)
== END ==
LOC: M WUC 14:01
PROVIDERS: ATTEND Internal Medicine Cardiovascular Disease
DX: E78.2 Mixed hyperlipidemia (principal)

== ENCOUNTER → 2021-07-14 | Outpatient (CLI) | payer OTHER ==
--- NOTE | 2021-07-17 15:42 | SLEEPCENT ---
DATE: 07/14/2021 ORDERED BY: GRETCHEN Cobian Nocturnal polysomnography was performed for the titration of pressure therapy in this patient with obstructive sleep apnea syndrome, apnea-hypopnea index 22.4. For testing, a ResMed Quattro full face mask of medium size was used, 4 cm of water pressure were applied to the circuit and the lights were extinguished. Eight hours and 23 minutes of data were reviewed. There were 360 minutes of sleep identified. Sleep latency was mildly prolonged at 32.5 minutes. REM latency was short at 63.5 minutes. Sleep architecture was good with four REM cycles. Overall sleep efficiency was 72.4%. The electrocardiogram showed a sinus rhythm with an average heart rate of 65 beats per minute. Unifocal PVCs were appreciated. EEG showed normal waveforms for wake and sleep. Respiratory events were fully palliated with CPAP at a pressure of 12. Some limb activity was appreciated early in the study. Improvement was seen later in the test. IMPRESSIONS: Obstructive sleep apnea syndrome (G47.33). RECOMMENDATION: Nightly use of pressure therapy 12 cm of water.
== END ==
LOC: M SLEEP 20:00
PROVIDERS: ATTEND Physician Assistant
DX: G47.33 Obstructive sleep apnea (adult) (pediatric) (principal)

== ENCOUNTER → 2021-09-11 | Outpatient (CLI) | payer OTHER ==
[2021-09-11 14:49] LABS: CHOLESTEROL RISK RATIO 3.025 (<5)
== END ==
LOC: M PLALAB 10:01
PROVIDERS: ATTEND Internal Medicine Cardiovascular Disease
DX: E78.2 Mixed hyperlipidemia (principal); E88.81 Metabolic syndrome and other insulin resistance

== ENCOUNTER → 2021-09-11 | Outpatient (CLI) | payer OTHER ==
[2021-09-11 14:28] LABS: BLOOD UREA NITROGEN 17 MG/DL (7-18); CALCIUM LEVEL 9.3 MG/DL (8.5-10.1); CARBON DIOXIDE LEVEL 27 MEQ/L (21-32); CHLORIDE LEVEL 107 MEQ/L (98-107); CREATININE FOR GFR 1.17 MG/DL (0.70-1.30); GLOMERULAR FILTRATION RATE > 60.0 (>56); GLUCOSE, FASTING 130 MG/DL (70-100); POTASSIUM SERUM 4.4 MEQ/L (3.5-5.1); SODIUM LEVEL 140 MEQ/L (136-145)
[2021-09-11 14:39] LABS: MALB URINE SIEMENS 6.6 MG/L; MAU/CREAT RATIO 4.4 MCG/MG (0.0-30.0)
[2021-09-11 16:25] LABS: HEMOGLOBIN A1c 7.2 %
== END ==
LOC: M PLALAB 09:58
PROVIDERS: ATTEND Family Medicine
DX: E11.9 Type 2 diabetes mellitus without complications (principal)

== ENCOUNTER 2021-09-13 12:33 | Outpatient (CLI) | payer OTHER ==
[~2021-09-13] VITALS: Ht 167.6 cm; Wt 95.8 kg
[~2021-09-13 12:33] MED LIST changes: +ALBUTEROL 90 MCG/ACT 8GM HFA INHALER INH PRN; +ALBUTEROL SULFATE 2.5 MG/0.5 ML INH NEB SOLN INH PRN; +EPINEPHrine INJ 1 MG/ML 1ML AMP IM PRN; +NS 1,000 ML IV SCH; +diphenhydrAMINE 50MG/ML VIAL (J1200) IV PRN; +methylPREDNISolone 125MG 2ML VIAL IV PRN
[2021-09-13] MEDS ORDERED: ACETAMINOPHEN TAB 650MG DOSE (2X325MG) PO ONE (13:10)
[2021-09-13] MEDS ORDERED: BAMLANIVIMAB 700 MG, ETESEVIMAB 1,400 MG in NS 250 ML IV ONE (13:10)
[2021-09-13 13:53] VITALS: BP 115/70
[2021-09-13 14:50] VITALS: BP 120/73
[2021-09-13 15:21] VITALS: BP 113/66
[2021-09-13 15:51] VITALS: BP 120/78
[2021-09-13 15:59] VITALS: BP 129/74
[2021-09-13 17:06] VITALS: BP 124/75
== END 2021-09-13 17:17 | disposition home or self-care (01) ==
LOC: M OPCLI4PR 12:33 → M MS4PR 12:56 → M OPCLI4PR 17:17
PROVIDERS: ATTEND Family Medicine
DX: U07.1 COVID-19 (principal); Z88.1 Allergy status to other antibiotic agents
CPT/HCPCS: 96361; M0245

== ENCOUNTER → 2022-03-07 | Outpatient (REF) | payer OTHER ==
[~2022-03-07] MED LIST changes: -ALBUTEROL 90 MCG/ACT 8GM HFA INHALER INH PRN; -ALBUTEROL SULFATE 2.5 MG/0.5 ML INH NEB SOLN INH PRN; -EPINEPHrine INJ 1 MG/ML 1ML AMP IM PRN; +LOSA25TA13 PO; -LOSA25TA14 PO; +LOSA50TA28; -LOSA50TA88; -NS 1,000 ML IV SCH; -diphenhydrAMINE 50MG/ML VIAL (J1200) IV PRN; -methylPREDNISolone 125MG 2ML VIAL IV PRN
== END ==
LOC: M SMT 20:09
PROVIDERS: ATTEND Urology
DX: Z12.5 Encounter for screening for malignant neoplasm of prostate (principal)

== ENCOUNTER → 2022-04-27 | Outpatient (CLI) | payer OTHER | LOC: M RAD 11:39 | PROVIDERS: ATTEND Otolaryngology | DX: H92.01 Otalgia, right ear (principal); J32.1 Chronic frontal sinusitis; H74.92 Unspecified disorder of left middle ear and mastoid ==

== ENCOUNTER → 2022-05-02 | Outpatient (CLI) | payer OTHER ==
[2022-05-02 17:42] LABS: BASO % 0.6 % (0.0-1.0); EOS # 0.3 10^3/uL (0.0-0.5); EOS % 4.4 % (0.0-3.0); HEMATOCRIT 41.1 % (42.0-52.0); HEMOGLOBIN 12.7 g/dl (13.5-17.5); LYMPH # 2.1 10^3/uL (1.5-5.0); LYMPH % 32.8 % (24.0-44.0); MEAN CORPUSCULAR HEMOGLOBIN 28.3 pg (27.0-33.0); MEAN CORPUSCULAR HGB CONC 30.9 g/dl (32.0-36.5); MEAN CORPUSCULAR VOLUME 91.5 fl (80.0-96.0); MONO # 0.6 10^3/uL (0.0-0.8); MONO % 8.7 % (2.0-8.0); NEUTROPHILS # 3.4 10^3/uL (1.5-8.5); NEUTROPHILS % 52.6 % (36.0-66.0); PLATELET COUNT, AUTOMATED 271 10^3/uL (150-450); RED BLOOD COUNT 4.49 10^6/uL (4.30-6.10); WHITE BLOOD COUNT 6.4 10^3/uL (4.0-10.0)
[2022-05-02 17:59] LABS: HEMOGLOBIN A1c 7.8 %
[2022-05-02 18:13] LABS: ALBUMIN 3.7 GM/DL (3.2-5.2); ALT/SGPT 32 U/L (12-78); BILIRUBIN,TOTAL 0.3 MG/DL (0.2-1.0); BLOOD UREA NITROGEN 17 MG/DL (7-18); CALCIUM LEVEL 9.6 MG/DL (8.5-10.1); CARBON DIOXIDE LEVEL 28 MEQ/L (21-32); CHLORIDE LEVEL 109 MEQ/L (98-107); CHOLESTEROL LEVEL 156 MG/DL (<200); CREATININE FOR GFR 1.18 MG/DL (0.70-1.30); GLOMERULAR FILTRATION RATE > 60.0 (>56); GLUCOSE, FASTING 123 MG/DL (70-100); HDL CHOLESTEROL 40 MG/DL (>40); LDL CHOLESTEROL 55 MG/DL (<100); NON-HDL-C 116 MG/DL; POTASSIUM SERUM 4.3 MEQ/L (3.5-5.1); SODIUM LEVEL 142 MEQ/L (136-145); TOTAL PROTEIN 6.8 GM/DL (6.4-8.2); TRIGLYCERIDES LEVEL 303 MG/DL (<150)
== END ==
LOC: M LAB 16:25
PROVIDERS: ATTEND Family Medicine
DX: D64.9 Anemia, unspecified (principal); E11.9 Type 2 diabetes mellitus without complications; K76.0 Fatty (change of) liver, not elsewhere classified; E78.2 Mixed hyperlipidemia

== ENCOUNTER → 2022-06-18 | Outpatient (CLI) | payer OTHER, SELFPAY | LOC: M RAD 14:13 | PROVIDERS: ATTEND Family Medicine | DX: I73.9 Peripheral vascular disease, unspecified (principal) ==

== ENCOUNTER → 2023-01-12 | Outpatient (CLI) | payer OTHER ==
[2023-01-12 09:32] LABS: ALBUMIN 3.6 G/DL (3.2-5.2); ALKALINE PHOSPHATASE 57 U/L (46-116); ALT/SGPT 35 U/L (7.0-40); AST/SGOT 24 U/L (<34); BILIRUBIN,TOTAL 0.5 MG/DL (0.3-1.2); BLOOD UREA NITROGEN 21 MG/DL (9-23); CALCIUM LEVEL 8.8 MG/DL (8.5-10.1); CARBON DIOXIDE LEVEL 27 MMOL/L (20-31); CHLORIDE LEVEL 104 MMOL/L (98-107); CREATININE FOR GFR 1.08 MG/DL (0.70-1.30); GLOMERULAR FILTRATION RATE > 60.0 (>56); GLUCOSE, FASTING 187 MG/DL (60-100); SODIUM LEVEL 138 MMOL/L (136-145); TOTAL PROTEIN 6.2 G/DL (5.7-8.2)
[2023-01-12 09:34] LABS: HEMOGLOBIN A1c 6.5 % (4.0-6.0)
[2023-01-12 09:40] LABS: CREATININE, URINE 115.7 MG/DL; MALB URINE SIEMENS < 3.0 MG/DL; MAU/CREAT RATIO 2.5 MCG/MG (0.0-30.0)
== END ==
LOC: M LAB 08:28
PROVIDERS: ATTEND Family Medicine
DX: E11.9 Type 2 diabetes mellitus without complications (principal); E66.9 Obesity, unspecified

== ENCOUNTER → 2023-03-30 | Outpatient (CLI) | payer OTHER ==
[2023-03-30 11:28] LABS: LDL CHOLESTEROL 74.4 MG/DL (<100)
== END ==
LOC: M LAB 10:31
PROVIDERS: ATTEND Physician Assistant Medical
DX: E78.2 Mixed hyperlipidemia (principal)

== ENCOUNTER → 2023-05-20 | Outpatient (CLI) | payer OTHER | LOC: M WUC 10:11 | PROVIDERS: ATTEND Family Medicine | DX: R05.9 Cough, unspecified (principal); Z95.0 Presence of cardiac pacemaker ==

== ENCOUNTER → 2023-06-01 | Outpatient (CLI) | payer OTHER ==
[~2023-06-01] MED LIST changes: +BENZ200C70 PO; +FENO145T7 PO; +METO1TAB7 PO; +SEMA2PEN SQ; +TERB250T91 PO
[2023-06-01 09:28] LABS: BASO # 0.1 10^3/uL (0.0-0.2); BASO % 0.7 % (0.0-1.0); EOS # 0.3 10^3/uL (0.0-0.5); EOS % 4.5 % (0.0-3.0); HEMATOCRIT 42.7 % (42.0-52.0); HEMOGLOBIN 13.2 g/dl (13.5-17.5); LYMPH # 2.2 10^3/uL (1.5-5.0); LYMPH % 28.7 % (24.0-44.0); MEAN CORPUSCULAR HEMOGLOBIN 28.2 pg (27.0-33.0); MEAN CORPUSCULAR HGB CONC 30.9 g/dl (32.0-36.5); MEAN CORPUSCULAR VOLUME 91.2 fl (80.0-96.0); MONO # 0.6 10^3/uL (0.0-0.8); MONO % 8.4 % (2.0-8.0); NEUTROPHILS # 4.3 10^3/uL (1.5-8.5); NEUTROPHILS % 56.8 % (36.0-66.0); PLATELET COUNT, AUTOMATED 283 10^3/uL (150-450); RED BLOOD COUNT 4.68 10^6/uL (4.30-6.10); WHITE BLOOD COUNT 7.5 10^3/uL (4.0-10.0)
[2023-06-01 09:54] LABS: HEMOGLOBIN A1c 6.3 % (4.0-6.0)
[2023-06-01 09:57] LABS: TOTAL IRON BINDING CAPACITY 419 UG/DL (250-425)
[2023-06-01 09:58] LABS: ALBUMIN 3.7 G/DL (3.2-5.2); ALKALINE PHOSPHATASE 59 U/L (46-116); ALT/SGPT 43 U/L (7.0-40); AST/SGOT 21 U/L (<34); BILIRUBIN,TOTAL 0.6 MG/DL (0.3-1.2); BLOOD UREA NITROGEN 18 MG/DL (9-23); CALCIUM LEVEL 9.3 MG/DL (8.5-10.1); CARBON DIOXIDE LEVEL 27 MMOL/L (20-31); CHLORIDE LEVEL 108 MMOL/L (98-107); CHOLESTEROL LEVEL 125 MG/DL (<200); CHOLESTEROL RISK RATIO 2.94 (<5); CREATININE FOR GFR 1.11 MG/DL (0.70-1.30); GLOMERULAR FILTRATION RATE > 60.0 (>56); GLUCOSE, FASTING 109 MG/DL (60-100); HDL CHOLESTEROL 42.5 MG/DL (>40); IRON (FE) 71 UG/DL (65-175); LDL CHOLESTEROL 65.7 MG/DL (<100); MAGNESIUM LEVEL 1.7 MG/DL (1.8-2.4); NON-HDL-C 82.5 MG/DL; PERCENT SATURATION 16.9 % (19.7-50.0); POTASSIUM SERUM 4.6 MMOL/L (3.5-5.1); SODIUM LEVEL 141 MMOL/L (136-145); THYROXINE (T4) 10.1 UG/DL (4.5-10.9); TOTAL PROTEIN 6.5 G/DL (5.7-8.2); TRIGLYCERIDES LEVEL 84 MG/DL (<150)
[2023-06-01 09:59] LABS: FERRITIN 101.9 NG/ML (10.5-307.3); THYROID STIMULATING HORMONE 1.616 uIU/ML (0.55-4.78)
== END ==
LOC: M LAB 09:03
PROVIDERS: ATTEND Internal Medicine Advanced Heart Failure and Transplant Cardiology
DX: I42.2 Other hypertrophic cardiomyopathy (principal)

== ENCOUNTER 2023-06-07 12:06 | Day surgery (SDC) | payer OTHER ==
[~2023-06-07] VITALS: Ht 167.6 cm; Wt 89.0 kg
[~2023-06-07 12:06] MED LIST changes: +CelecoXIB 400 MG CAP PO ONE; +ceFAZolin SOD 2 GM in IV 1 EA IV ONE
[2023-06-07] MEDS ORDERED: LR 1,000 ML IV SCH ×2 (12:40→15:50)
[2023-06-07] MEDS ORDERED: LIDOCAINE 1% SDV 30ML VIAL As Ordered ONE (14:12)
[2023-06-07] MEDS ORDERED: MIDAZOLAM INJ 2MG/2ML VIAL As Ordered ONE (14:13)
[2023-06-07] MEDS ORDERED: fentaNYL 100 MCG/2 ML INJECTION As Ordered ONE (14:13)
[2023-06-07] MEDS ORDERED: propofoL 200 MG/20 ML VIAL As Ordered ONE ×2 (14:14→15:41)
[2023-06-07] MEDS ORDERED: KETOROLAC 60MG 2ML VIAL As Ordered ONE (14:14)
[2023-06-07] MEDS ORDERED: ONDANSETRON 4MG 2ML VIAL As Ordered ONE (14:14)
[2023-06-07] MEDS ORDERED: ROCURONIUM BROMIDE 50MG/5ML VIAL As Ordered ONE ×2 (14:15→14:55)
[2023-06-07] MEDS ORDERED: SUGAMMADEX SODIUM 500 MG/5 ML VIAL (BRIDION) As Ordered ONE (14:15)
[2023-06-07] MEDS ORDERED: LIDOCAINE 2% 100MG/5ML SDV (FOR ANES.) As Ordered ONE (14:15)
[2023-06-07] MEDS ORDERED: ACETAMINOPHEN 1000MG 100ML IV BAG As Ordered ONE (14:48)
[2023-06-07] MEDS ORDERED: HYDROmorphone HCL 2MG/ML 1ML VIAL As Ordered ONE (14:57)
[2023-06-07] MEDS ORDERED: oxyCODONE 5MG TAB PO PRN (15:50)
[2023-06-07] MEDS ORDERED: HYDROMORPHONE HCL 0.5 MG/ 0.5 ML SYRINGE IV PRN (15:50)
[2023-06-07] MEDS ORDERED: ONDANSETRON 4MG 2ML VIAL IV PRN (15:50)
[2023-06-07] MEDS ORDERED: fentaNYL 100 MCG/2 ML INJECTION IV PRN (15:50)
[2023-06-07] MEDS ORDERED: NORCO, ANEXSIA 5/325MG TABLET (HYDROcodone/ACETAMINOPHEN) PO PRN ×2 (16:40)
[2023-06-07 17:25] VITALS: BP 111/60; TEMP 97.5; O2SAT 95
[2023-06-07] MEDS ORDERED: KETOROLAC 30 MG/ML 1ML VIAL IV SCH (22:00)
== END 2023-06-07 17:30 | disposition home or self-care (01) ==
LOC: M SDC 12:06
PROVIDERS: ATTEND Surgery
DX: K42.0 Umbilical hernia with obstruction, without gangrene (principal); I10 Essential (primary) hypertension; E11.9 Type 2 diabetes mellitus without complications; E78.5 Hyperlipidemia, unspecified; Z95.810 Presence of automatic (implantable) cardiac defibrillator; Z88.0 Allergy status to penicillin; Z88.8 Allergy status to other drugs, medicaments and biological substances; G47.33 Obstructive sleep apnea (adult) (pediatric); Z79.84 Long term (current) use of oral hypoglycemic drugs; Z79.899 Other long term (current) drug therapy
CPT/HCPCS: 49592; J0131; J0665; J0690; J1100; J1170; J1885; J2250; J2405; J3010

== ENCOUNTER 2024-02-14 08:23 | Emergency (ER) | payer OTHER ==
[~2024-02-14] VITALS: Ht 167.6 cm; Wt 88.6 kg
[~2024-02-14 08:23] MED LIST changes: -ALLE1TAB23 PO; -AZEL0.055; +AZEL0.055 NARES; +CELE0.09 PO; -CELE1CAP9 PO; -CelecoXIB 400 MG CAP PO ONE; +FEXO-157 PO; -FLON1SPR; +FLON1SPR NARES; -ceFAZolin SOD 2 GM in IV 1 EA IV ONE
[2024-02-14 08:24] VITALS: TEMP 96.4
[2024-02-14] MEDS: ASPIRIN 81MG CHEW TABLET PO ONE (08:57)
[2024-02-14 09:12] LABS: BASO # 0.1 10^3/uL (0.0-0.2); BASO % 0.8 % (0.0-1.0); EOS # 0.3 10^3/uL (0.0-0.5); EOS % 4.1 % (0.0-3.0); HEMATOCRIT 46.6 % (42.0-52.0); HEMOGLOBIN 14.6 g/dl (13.5-17.5); LYMPH # 1.9 10^3/uL (1.5-5.0); MEAN CORPUSCULAR HEMOGLOBIN 28.3 pg (27.0-33.0); MEAN CORPUSCULAR HGB CONC 31.3 g/dl (32.0-36.5); MEAN CORPUSCULAR VOLUME 90.3 fl (80.0-96.0); MONO # 0.6 10^3/uL (0.0-0.8); MONO % 8.1 % (2.0-8.0); NEUTROPHILS # 4.7 10^3/uL (1.5-8.5); NEUTROPHILS % 61.5 % (36.0-66.0); PLATELET COUNT, AUTOMATED 257 10^3/uL (150-450); RED BLOOD COUNT 5.16 10^6/uL (4.30-6.10); WHITE BLOOD COUNT 7.6 10^3/uL (4.0-10.0)
[2024-02-14 09:14] LABS: INR 1.02; PARTIAL THROMBOPLASTIN TIME 25.8 SECONDS (24.8-34.2); PROTHROMBIN TIME 13.1 SECONDS (12.5-14.5)
[2024-02-14 09:31] LABS: CK-MB VALUE MASS < 1.0 NG/ML (<3.6); LIPASE 42 U/L (12-53)
[2024-02-14 09:33] LABS: ALBUMIN 3.9 G/DL (3.2-5.2); ALKALINE PHOSPHATASE 59 U/L (46-116); ALT/SGPT 33 U/L (7.0-40); AST/SGOT 17 U/L (<34); BILIRUBIN,DIRECT 0.2 MG/DL (<0.4); BILIRUBIN,TOTAL 0.4 MG/DL (0.3-1.2); BLOOD UREA NITROGEN 18 MG/DL (9-23); CALCIUM LEVEL 8.8 MG/DL (8.5-10.1); CARBON DIOXIDE LEVEL 27 MMOL/L (20-31); CHLORIDE LEVEL 110 MMOL/L (98-107); CPK CREATINE PHOSPHOKINASE 84 U/L (46-171); CREATININE FOR GFR 1.19 MG/DL (0.70-1.30); GLOMERULAR FILTRATION RATE > 60.0 (>56); GLUCOSE, FASTING 122 MG/DL (60-100); MB/CK RELATIVE INDEX 1.19 (< OR =4); POTASSIUM SERUM 4.7 MMOL/L (3.5-5.1); SODIUM LEVEL 141 MMOL/L (136-145); TOTAL PROTEIN 6.5 G/DL (5.7-8.2)
[2024-02-14 09:35] LABS: FREE T4 1.07 NG/DL (0.89-1.76); THYROID STIMULATING HORMONE 1.963 uIU/ML (0.55-4.78)
[2024-02-14 09:39] LABS: RSV AMPLIFICATION NEGATIVE (NEGATIVE)
[2024-02-14] MEDS: ONDANSETRON 4MG 2ML VIAL IV ONE (09:42)
[2024-02-14] MEDS: MORPHINE 2 MG/ML 1ML VIAL IV PRN (09:42)
[2024-02-14 11:00] VITALS: BP 142/73
[2024-02-14 11:19] LABS: CK-MB VALUE MASS < 1.0 NG/ML (<3.6)
[2024-02-14] MEDS ORDERED: ISOVUE-370 76% 100ML VIAL As Ordered ONE (11:23)
[2024-02-14 11:28] LABS: CPK CREATINE PHOSPHOKINASE 75 U/L (46-171); MB/CK RELATIVE INDEX 1.33 (< OR =4)
[2024-02-14] MEDS ORDERED: FARX1TAB3 PO (13:52)
[2024-02-14] MEDS ORDERED: MYRB50TA PO (13:52)
[2024-02-14] MEDS ORDERED: EXCETAB32 PO (13:52)
[2024-02-14] MEDS ORDERED: VERA240C3 PO (13:52)
[2024-02-14] MEDS ORDERED: METF-839 PO (13:52)
[2024-02-14] MEDS ORDERED: HOME MED LIST COMPLETE! XX SCH (13:55)
[2024-02-14 15:30] VITALS: O2SAT 95
== END 2024-02-14 17:39 | disposition home or self-care (01) ==
LOC: M ED 08:23
DX: R07.9 Chest pain, unspecified (principal); I51.9 Heart disease, unspecified; E11.9 Type 2 diabetes mellitus without complications; I10 Essential (primary) hypertension; Z95.810 Presence of automatic (implantable) cardiac defibrillator; Z79.4 Long term (current) use of insulin; Z79.899 Other long term (current) drug therapy; Z88.0 Allergy status to penicillin; Z88.1 Allergy status to other antibiotic agents
CPT/HCPCS: 36415; 71045; 71275; 80048; 80076; 82550; 82553; 83690; 83880; 84439; 84443; 84484; 85025; 85610; 85730; 87631; 93005; 93041; 94760; 96374; 96375; 99285; J2405; Q9967

== ENCOUNTER → 2024-03-13 | Outpatient (CLI) | payer OTHER ==
[~2024-03-13] MED LIST changes: +EXCETAB32 PO; +FARX1TAB3 PO; +METF-839 PO; +MYRB50TA PO; +VERA240C3 PO
[2024-03-13 11:15] LABS: BASO % 0.4 % (0.0-1.0); EOS # 0.3 10^3/uL (0.0-0.5); EOS % 3.6 % (0.0-3.0); HEMATOCRIT 46.6 % (42.0-52.0); HEMOGLOBIN 14.7 g/dl (13.5-17.5); LYMPH # 1.9 10^3/uL (1.5-5.0); LYMPH % 22.4 % (24.0-44.0); MEAN CORPUSCULAR HEMOGLOBIN 28.7 pg (27.0-33.0); MEAN CORPUSCULAR HGB CONC 31.5 g/dl (32.0-36.5); MEAN CORPUSCULAR VOLUME 90.8 fl (80.0-96.0); MONO # 0.7 10^3/uL (0.0-0.8); MONO % 8.3 % (2.0-8.0); NEUTROPHILS # 5.5 10^3/uL (1.5-8.5); NEUTROPHILS % 64.7 % (36.0-66.0); PLATELET COUNT, AUTOMATED 247 10^3/uL (150-450); RED BLOOD COUNT 5.13 10^6/uL (4.30-6.10); WHITE BLOOD COUNT 8.5 10^3/uL (4.0-10.0)
[2024-03-13 11:45] LABS: ALBUMIN 3.9 G/DL (3.2-5.2); ALKALINE PHOSPHATASE 54 U/L (46-116); ALT/SGPT 42 U/L (7.0-40); AST/SGOT 27 U/L (<34); BILIRUBIN,TOTAL 0.5 MG/DL (0.3-1.2); BLOOD UREA NITROGEN 16 MG/DL (9-23); CALCIUM LEVEL 9.9 MG/DL (8.5-10.1); CARBON DIOXIDE LEVEL 25 MMOL/L (20-31); CHLORIDE LEVEL 111 MMOL/L (98-107); CREATININE FOR GFR 1.13 MG/DL (0.70-1.30); GLOMERULAR FILTRATION RATE > 60.0 (>56); GLUCOSE, FASTING 108 MG/DL (60-100); MAGNESIUM LEVEL 1.6 MG/DL (1.8-2.4); POTASSIUM SERUM 4.7 MMOL/L (3.5-5.1); SODIUM LEVEL 142 MMOL/L (136-145); TOTAL PROTEIN 6.5 G/DL (5.7-8.2)
[2024-03-13 11:47] LABS: FREE T4 1.13 NG/DL (0.89-1.76); THYROID STIMULATING HORMONE 1.198 uIU/ML (0.55-4.78)
== END ==
LOC: M LAB 10:39
PROVIDERS: ATTEND Physician Assistant Medical
DX: Z00.00 Encounter for general adult medical examination without abnormal findings (principal); I42.2 Other hypertrophic cardiomyopathy

== ENCOUNTER → 2024-03-28 | Outpatient (CLI) | payer OTHER ==
[2024-03-28 11:53] LABS: BASO % 0.6 % (0.0-1.0); EOS # 0.3 10^3/uL (0.0-0.5); EOS % 3.5 % (0.0-3.0); HEMATOCRIT 45.8 % (42.0-52.0); HEMOGLOBIN 14.5 g/dl (13.5-17.5); LYMPH % 27.3 % (24.0-44.0); MEAN CORPUSCULAR HEMOGLOBIN 28.7 pg (27.0-33.0); MEAN CORPUSCULAR HGB CONC 31.7 g/dl (32.0-36.5); MEAN CORPUSCULAR VOLUME 90.5 fl (80.0-96.0); MONO # 0.6 10^3/uL (0.0-0.8); NEUTROPHILS # 4.3 10^3/uL (1.5-8.5); NEUTROPHILS % 59.8 % (36.0-66.0); PLATELET COUNT, AUTOMATED 234 10^3/uL (150-450); RED BLOOD COUNT 5.06 10^6/uL (4.30-6.10); WHITE BLOOD COUNT 7.1 10^3/uL (4.0-10.0)
[2024-03-28 12:06] LABS: HEMOGLOBIN A1c 5.9 % (4.0-6.0)
[2024-03-28 12:09] LABS: CREATININE, URINE 114.6 MG/DL; MALB URINE SIEMENS < 3.0 MG/L; MAU/CREAT RATIO 2.6 MCG/MG (0.0-30.0)
[2024-03-28 12:10] LABS: ALBUMIN 3.8 G/DL (3.2-5.2); ALKALINE PHOSPHATASE 53 U/L (46-116); ALT/SGPT 27 U/L (7.0-40); AST/SGOT 14 U/L (<34); BILIRUBIN,TOTAL 0.7 MG/DL (0.3-1.2); BLOOD UREA NITROGEN 19 MG/DL (9-23); CALCIUM LEVEL 9.1 MG/DL (8.5-10.1); CARBON DIOXIDE LEVEL 29 MMOL/L (20-31); CHLORIDE LEVEL 106 MMOL/L (98-107); CHOLESTEROL LEVEL 129 MG/DL (<200); CHOLESTEROL RISK RATIO 3.13 (<5); CREATININE FOR GFR 1.17 MG/DL (0.70-1.30); GLOMERULAR FILTRATION RATE > 60.0 (>56); GLUCOSE, FASTING 107 MG/DL (60-100); HDL CHOLESTEROL 41.2 MG/DL (>40); NON-HDL-C 87.8 MG/DL; POTASSIUM SERUM 4.2 MMOL/L (3.5-5.1); SODIUM LEVEL 140 MMOL/L (136-145); TOTAL PROTEIN 6.5 G/DL (5.7-8.2); TRIGLYCERIDES LEVEL 99 MG/DL (<150)
[2024-03-28 12:13] LABS: TOTAL 25(OH) VITAMIN D 13.9 NG/ML (20.0-100.0); VITAMIN B12 LEVEL 281 PG/ML (211-911)
[2024-03-28 12:14] LABS: FOLATE 13.96 NG/ML (>5.4)
== END ==
LOC: M LAB 11:17
PROVIDERS: ATTEND Family Medicine
DX: E11.69 Type 2 diabetes mellitus with other specified complication (principal); R53.83 Other fatigue

== ENCOUNTER → 2024-08-14 | Outpatient (REF) | payer OTHER ==
[~2024-08-14] MED LIST changes: -AZEL0.055 NARES; +AZEL1SPR4 NARES; -FEXO-157 PO; +FEXO-63 PO
== END ==
LOC: M LAB REF 16:46
PROVIDERS: ATTEND Otolaryngology
DX: H60.42 Cholesteatoma of left external ear (principal)

== ENCOUNTER → 2024-09-18 | Outpatient (CLI) | payer OTHER ==
[2024-09-18 16:46] LABS: HEMOGLOBIN A1c 6.4 % (4.0-6.0)
[2024-09-18 16:59] LABS: ALBUMIN 3.5 G/DL (3.2-5.2); ALKALINE PHOSPHATASE 93 U/L (46-116); ALT/SGPT 30 U/L (7.0-40); AST/SGOT 13 U/L (<34); BILIRUBIN,TOTAL 0.2 MG/DL (0.3-1.2); BLOOD UREA NITROGEN 19 MG/DL (9-23); CALCIUM LEVEL 9.1 MG/DL (8.5-10.1); CARBON DIOXIDE LEVEL 24 MMOL/L (20-31); CHLORIDE LEVEL 110 MMOL/L (98-107); CREATININE FOR GFR 1.11 MG/DL (0.70-1.30); GLOMERULAR FILTRATION RATE > 60.0 (>56); GLUCOSE, FASTING 176 MG/DL (60-100); POTASSIUM SERUM 4.1 MMOL/L (3.5-5.1); SODIUM LEVEL 140 MMOL/L (136-145); TOTAL PROTEIN 6.5 G/DL (5.7-8.2)
== END ==
LOC: M LAB 15:55
PROVIDERS: ATTEND Family Medicine
DX: E11.9 Type 2 diabetes mellitus without complications (principal)

== ENCOUNTER → 2024-09-18 | Outpatient (CLI) | payer OTHER ==
[2024-09-18 16:30] LABS: HEMATOCRIT 43.6 % (42.0-52.0); HEMOGLOBIN 13.7 g/dl (13.5-17.5); MEAN CORPUSCULAR HGB CONC 31.4 g/dl (32.0-36.5); MEAN CORPUSCULAR VOLUME 89.2 fl (80.0-96.0); PLATELET COUNT, AUTOMATED 222 10^3/uL (150-450); RED BLOOD COUNT 4.89 10^6/uL (4.30-6.10); WHITE BLOOD COUNT 7.8 10^3/uL (4.0-10.0)
[2024-09-18 16:58] LABS: CHOLESTEROL RISK RATIO 3.72 (<5); HDL CHOLESTEROL 38.1 MG/DL (>40); LDL CHOLESTEROL 27.1 MG/DL (<100); NON-HDL-C 103.9 MG/DL
== END ==
LOC: M LAB 15:52
PROVIDERS: ATTEND Internal Medicine Advanced Heart Failure and Transplant Cardiology
DX: I42.8 Other cardiomyopathies (principal)

== ENCOUNTER → 2024-10-03 | Outpatient (CLI) | payer OTHER ==
[2024-10-03 10:12] LABS: BASO # 0.1 10^3/uL (0.0-0.2); BASO % 0.6 % (0.0-1.0); EOS # 0.3 10^3/uL (0.0-0.5); EOS % 3.1 % (0.0-3.0); HEMATOCRIT 47.7 % (42.0-52.0); HEMOGLOBIN 14.9 g/dl (13.5-17.5); LYMPH # 2.1 10^3/uL (1.5-5.0); LYMPH % 26.8 % (24.0-44.0); MEAN CORPUSCULAR HEMOGLOBIN 27.6 pg (27.0-33.0); MEAN CORPUSCULAR HGB CONC 31.2 g/dl (32.0-36.5); MEAN CORPUSCULAR VOLUME 88.5 fl (80.0-96.0); MONO # 0.7 10^3/uL (0.0-0.8); MONO % 8.9 % (2.0-8.0); NEUTROPHILS # 4.7 10^3/uL (1.5-8.5); NEUTROPHILS % 58.7 % (36.0-66.0); PLATELET COUNT, AUTOMATED 211 10^3/uL (150-450); RED BLOOD COUNT 5.39 10^6/uL (4.30-6.10)
[2024-10-03 10:40] LABS: HEMOGLOBIN A1c 6.4 % (4.0-6.0)
[2024-10-03 10:41] LABS: ALBUMIN 3.7 G/DL (3.2-5.2); ALKALINE PHOSPHATASE 84 U/L (40-129); ALT/SGPT 54 U/L (7.0-40); AST/SGOT 25 U/L (<34); BILIRUBIN,TOTAL 0.9 MG/DL (0.3-1.2); BLOOD UREA NITROGEN 18 MG/DL (9-23); CALCIUM LEVEL 9.7 MG/DL (8.5-10.1); CARBON DIOXIDE LEVEL 27 MMOL/L (20-31); CHLORIDE LEVEL 105 MMOL/L (98-107); CHOLESTEROL LEVEL 151 MG/DL (<200); CREATININE FOR GFR 1.02 MG/DL (0.70-1.30); GLOMERULAR FILTRATION RATE > 60.0 (>56); GLUCOSE, FASTING 115 MG/DL (60-100); HDL CHOLESTEROL 48.6 MG/DL (>40); MAGNESIUM LEVEL 1.7 MG/DL (1.8-2.4); NON-HDL-C 102.4 MG/DL; POTASSIUM SERUM 4.7 MMOL/L (3.5-5.1); SODIUM LEVEL 139 MMOL/L (136-145); TOTAL PROTEIN 6.9 G/DL (5.7-8.2); TRIGLYCERIDES LEVEL 177 MG/DL (<150)
== END ==
LOC: M LAB 08:57
PROVIDERS: ATTEND Physician Assistant Medical
DX: Z00.01 Encounter for general adult medical examination with abnormal findings (principal); I42.2 Other hypertrophic cardiomyopathy; E78.1 Pure hyperglyceridemia

== ENCOUNTER → 2024-10-15 | Outpatient (CLI) | payer OTHER | LOC: M LAB 12:01 | PROVIDERS: ATTEND Urology | DX: R39.9 Unspecified symptoms and signs involving the genitourinary system (principal) | CPT/HCPCS: 36415; G0103 ==

== ENCOUNTER → 2025-03-11 | Outpatient (CLI) | payer OTHER ==
[2025-03-11 17:08] LABS: HEMOGLOBIN A1c 6.3 % (4.0-6.0)
[2025-03-11 17:18] LABS: BASO # 0.1 10^3/uL (0.0-0.2); BASO % 0.6 % (0.0-1.0); EOS # 0.3 10^3/uL (0.0-0.5); HEMATOCRIT 51.6 % (42.0-52.0); HEMOGLOBIN 16.3 g/dl (13.5-17.5); LYMPH # 3.1 10^3/uL (1.5-5.0); LYMPH % 32.1 % (24.0-44.0); MEAN CORPUSCULAR HEMOGLOBIN 28.1 pg (27.0-33.0); MEAN CORPUSCULAR HGB CONC 31.6 g/dl (32.0-36.5); MEAN CORPUSCULAR VOLUME 88.8 fl (80.0-96.0); MONO # 0.9 10^3/uL (0.0-0.8); MONO % 9.7 % (2.0-8.0); NEUTROPHILS # 5.1 10^3/uL (1.5-8.5); NEUTROPHILS % 53.3 % (36.0-66.0); PLATELET COUNT, AUTOMATED 239 10^3/uL (150-450); RED BLOOD COUNT 5.81 10^6/uL (4.30-6.10); WHITE BLOOD COUNT 9.6 10^3/uL (4.0-10.0)
[2025-03-11 17:29] LABS: ALBUMIN 3.9 G/DL (3.2-5.2); BILIRUBIN,TOTAL 0.8 MG/DL (0.3-1.2); CALCIUM LEVEL 9.4 MG/DL (8.5-10.1); CHOLESTEROL RISK RATIO 2.86 (<5); CREATININE FOR GFR 1.34 MG/DL (0.70-1.30); GLOMERULAR FILTRATION RATE 61.8 (>56); LDL CHOLESTEROL 9.4 MG/DL (<100); POTASSIUM SERUM 4.7 MMOL/L (3.5-5.1); TOTAL PROTEIN 7.2 G/DL (5.7-8.2)
== END ==
LOC: M LAB 16:26
PROVIDERS: ATTEND Physician Assistant Medical
DX: Z00.00 Encounter for general adult medical examination without abnormal findings (principal); I42.2 Other hypertrophic cardiomyopathy

== ENCOUNTER → 2025-03-23 | Outpatient (CLI) | payer OTHER ==
[2025-03-23 11:36] LABS: BASO # 0.1 10^3/uL (0.0-0.2); BASO % 0.6 % (0.0-1.0); EOS # 0.2 10^3/uL (0.0-0.5); EOS % 2.3 % (0.0-3.0); HEMATOCRIT 53.8 % (42.0-52.0); LYMPH # 2.2 10^3/uL (1.5-5.0); MEAN CORPUSCULAR HEMOGLOBIN 28.4 pg (27.0-33.0); MEAN CORPUSCULAR HGB CONC 31.6 g/dl (32.0-36.5); MEAN CORPUSCULAR VOLUME 89.8 fl (80.0-96.0); MONO # 0.7 10^3/uL (0.0-0.8); MONO % 9.1 % (2.0-8.0); NEUTROPHILS # 4.8 10^3/uL (1.5-8.5); NEUTROPHILS % 60.4 % (36.0-66.0); PLATELET COUNT, AUTOMATED 255 10^3/uL (150-450); RED BLOOD COUNT 5.99 10^6/uL (4.30-6.10)
[2025-03-23 12:01] LABS: BILIRUBIN,TOTAL 1.7 MG/DL (0.3-1.2); CALCIUM LEVEL 9.4 MG/DL (8.5-10.1); CHOLESTEROL RISK RATIO 2.87 (<5); CREATININE FOR GFR 1.18 MG/DL (0.70-1.30); HDL CHOLESTEROL 41.7 MG/DL (>40); LDL CHOLESTEROL 46.5 MG/DL (<100); MAGNESIUM LEVEL 1.9 MG/DL (1.8-2.4); NON-HDL-C 78.3 MG/DL; POTASSIUM SERUM 4.5 MMOL/L (3.5-5.1); TOTAL PROTEIN 7.2 G/DL (5.7-8.2)
[2025-03-23 12:02] LABS: HEMOGLOBIN A1c 6.3 % (4.0-6.0)
[2025-03-23 12:03] LABS: FREE T4 1.22 NG/DL (0.89-1.76); THYROID STIMULATING HORMONE 2.34 uIU/ML (0.55-4.78)
== END ==
LOC: M LAB 10:58
PROVIDERS: ATTEND Physician Assistant Medical
DX: Z00.00 Encounter for general adult medical examination without abnormal findings (principal); I50.9 Heart failure, unspecified; E11.9 Type 2 diabetes mellitus without complications; E78.1 Pure hyperglyceridemia

== ENCOUNTER → 2025-04-19 | Outpatient (CLI) | payer OTHER ==
[~2025-04-19] MED LIST changes: -FLOM0.4C39 PO; +TAMS-18 PO
[2025-04-19 11:15] LABS: HEMOGLOBIN A1c 6.5 % (4.0-6.0)
[2025-04-19 11:26] LABS: ALBUMIN 3.7 G/DL (3.2-5.2); ALKALINE PHOSPHATASE 87 U/L (40-129); ALT/SGPT 35 U/L (7.0-40); AST/SGOT 17 U/L (<34); BLOOD UREA NITROGEN 10 MG/DL (9-23); CALCIUM LEVEL 9.2 MG/DL (8.5-10.1); CARBON DIOXIDE LEVEL 28 MMOL/L (20-31); CHLORIDE LEVEL 105 MMOL/L (98-107); CREATININE FOR GFR 0.95 MG/DL (0.70-1.30); GLOMERULAR FILTRATION RATE > 90.0 (>56); GLUCOSE, FASTING 113 MG/DL (60-100); POTASSIUM SERUM 4.3 MMOL/L (3.5-5.1); SODIUM LEVEL 142 MMOL/L (136-145); TOTAL PROTEIN 6.7 G/DL (5.7-8.2)
== END ==
LOC: M LAB 10:02
PROVIDERS: ATTEND Family Medicine
DX: E11.9 Type 2 diabetes mellitus without complications (principal)

== ENCOUNTER → 2025-08-31 | Outpatient (RCR) | payer OTHER ==
[~2025-08-31] MED LIST changes: -PRAV20TA2 PO; +PRAV20TA78 PO; -VERA240C3 PO; +VERA240C5 PO
== END ==
LOC: M PT 08-04 14:12
PROVIDERS: ATTEND Family Medicine
DX: M25.522 Pain in left elbow (principal); M25.511 Pain in right shoulder

== ENCOUNTER 2025-09-29 16:00 | Outpatient (RCR) | payer OTHER | END 2025-10-01 | LOC: M PT 16:00 | PROVIDERS: ATTEND Family Medicine | DX: M25.522 Pain in left elbow (principal); M25.511 Pain in right shoulder ==

== ENCOUNTER 2025-10-14 16:00 | Outpatient (RCR) | payer OTHER | END 2025-10-31 | LOC: M PT 16:00 | PROVIDERS: ATTEND Family Medicine | DX: M25.552 Pain in left hip (principal); M25.511 Pain in right shoulder ==

== ENCOUNTER → 2025-10-14 | Outpatient (REF) | payer OTHER ==
[2025-10-14 18:34] LABS: ALT/SGPT 51.0 U/L (7.0-40); AST/SGOT 34.0 U/L (<34); CALCIUM LEVEL 8.5 MG/DL (8.5-10.1); CARBON DIOXIDE LEVEL 27.0 MMOL/L (20-31); CHLORIDE LEVEL 102.0 MMOL/L (98-107); CREATININE FOR GFR 1.18 MG/DL (0.70-1.30); GLOMERULAR FILTRATION RATE 71.5 (>56); POTASSIUM SERUM 4.7 MMOL/L (3.5-5.1); SODIUM LEVEL 140.0 MMOL/L (136-145)
[2025-10-14 18:51] LABS: ESTIMATED AVERAGE GLUCOSE 146.0 MG/DL (60-110)
[2025-10-14 19:25] LABS: CREATININE, URINE 76.6 MG/DL; MALB URINE SIEMENS < 3.0 MG/L
== END ==
LOC: M SFHCLERA 13:26
PROVIDERS: ATTEND Family Medicine
DX: E11.9 Type 2 diabetes mellitus without complications (principal); N32.81 Overactive bladder

== ENCOUNTER → 2025-10-14 | Outpatient (REF) | payer OTHER | LOC: M LAB REF 18:10 | PROVIDERS: ATTEND Urology | DX: N32.81 Overactive bladder (principal) ==

== ENCOUNTER → 2025-12-01 | Outpatient (RCR) | payer OTHER | LOC: M PT 11-11 14:51 | PROVIDERS: ATTEND Family Medicine | DX: M25.522 Pain in left elbow (principal); M25.511 Pain in right shoulder ==